=== PATIENT | female | born 1940 | race Caucasian/White ===

== ENCOUNTER → 2017-09-30 14:18 | Outpatient (CLI) | payer MEDICARE, OTHER | END | disposition home or self-care (01) | LOC: D.US 14:18 | DX: M79.605 Pain in left leg (principal); M79.604 Pain in right leg; R60.9 Edema, unspecified ==

== ENCOUNTER → 2020-03-06 18:50 | Outpatient (CLI) | payer MEDICARE, OTHER | END | disposition home or self-care (01) | LOC: D.LABREF 18:50 | PROVIDERS: ATTEND Orthopaedic Surgery | DX: M17.12 Unilateral primary osteoarthritis, left knee (principal) ==

== ENCOUNTER 2020-03-10 12:18 | Inpatient (IN) | payer MEDICARE, MEDICAID ==
[~2020-03-10] VITALS: Ht 152.4 cm; Wt 64.9 kg
[2020-03-18] MEDS ORDERED: PROZAC10 MG PO (15:56)
[2020-03-18] MEDS ORDERED: LOSARTAN-HCTZ1 EAC1 PO (15:56)
[2020-03-18] MEDS ORDERED: NEURONTIN600 MG PO (15:57)
[2020-03-18] MEDS ORDERED: HYDROCODON-ACE1 EA10 PO (15:57)
[2020-03-18] MEDS ORDERED: ELAVIL10 MG PO (15:57)
[2020-03-18] MEDS ORDERED: PROTONIX40 MG PO (15:58)
[2020-03-18] MEDS ORDERED: ROPINIROLE HCL1 MG PO (15:58)
[2020-03-18] MEDS ORDERED: VIRTUSSIN AC PO (15:59)
[2020-03-18] MEDS ORDERED: MUCINEX600 MG PO (16:00)
[2020-03-19 11:51] LABS: APTT 27.9 SECONDS (22.8-39.4); INR 0.98 (0.85-1.17)
[2020-03-19 11:56] LABS: CALC OSMOLALITY 267 mosm/kg (275-300); CALCIUM 9.7 mg/dL (8.5-10.1); CARBON DIOXIDE 28.2 mmol/L (21.0-32.0); CHLORIDE - SERUM 96 mmol/L (98-107); CREATININE - SERUM 0.6 mg/dL (0.6-1.3); GLUCOSE 88 mg/dL (74-106); POTASSIUM - SERUM 4.3 mmol/L (3.5-5.1); SODIUM 134 mmol/L (136-145); UREA NITROGEN 16 mg/dL (7-18); eGFR NON AFRICAN AMERICAN > 90 mL/min (90-120)
[2020-03-19 12:17] LABS: BASOPHILS 0.5 % (0-2); EOSINOPHILS 3.5 % (0-7); HEMATOCRIT 42.3 % (36.0-48.0); HEMOGLOBIN 13.5 g/dL (12-16); IMMATURE GRANULOCYTES 0.1 % (0-5); MCHC 31.9 g/dL (31.0-37.0); MCV 87.8 fL (80.0-100.0); MEAN PLATELET VOLUME 9.9 fL (7.4-10.4); MONOCYTES 9.3 % (2-11); NEUTROPHILS 58.6 % (40-80); PLATELET COUNT 284 10x3/uL (130-400); RBC 4.82 10x6/uL (4.00-5.40); RDW 13.9 % (11.5-14.5); WBC 7.8 10x3/uL (4.8-10.8)
[2020-03-19 13:09] LABS: BILIRUBIN NEGATIVE (NEGATIVE); GLUCOSE NEGATIVE (NEGATIVE); KETONE NEGATIVE (NEGATIVE); NITRITE NEGATIVE (NEGATIVE); SPECIFIC GRAVITY 1.005 (1.005-1.020); UROBILINOGEN NORMAL (NORMAL)
[2020-03-19 13:10] LABS: BACTERIA FEW /hpf (NEGATIVE); EPITHELIAL CELLS OCC /hpf (0-5); RED CELLS - URINE RARE /hpf (0-5); WHITE CELLS - URINE 0-5 /hpf (NEGATIVE)
[2020-03-26] VITALS (8 sets, daily range): BP systolic 110–135; BP diastolic 52–79; BMI 27.9
[2020-03-26] MEDS ORDERED: NEURONTIN600 MG PO (06:22)
[2020-03-26] MEDS ORDERED: ROPINIROLE HCL1 MG PO (06:23)
[2020-03-26] MEDS ORDERED: ELAVIL10 MG PO (06:23)
[2020-03-26] MEDS ORDERED: PROTONIX40 MG PO ×2 (06:24)
--- NOTE | 2020-03-26 08:17 | NUR ---
PLASMA BLADE SET TO 6/8 GROUNDING PAD RIGHT THIGH LOT# [id number] EXP 07/24/2021 PT LEFT LEG CLEANSED WITH HIBECLENS AND ALCOHOL FROM UPPER THIGH TO TOES CIRCUMFERENTIALLY PRIOR TO PREP. NURSE IN STERILE GOWN AND GLOVES TO PREP. LEFT LEG FROM THIGH TO TOES WITH CHLORAPREP X2.
--- NOTE | 2020-03-26 10:27 | NUR ---
ICE APPLIED AND JOHN LAI APPLIED ORDERED. CALLED FOR POST OP XRAY.
--- NOTE | 2020-03-26 11:59 | NUR ---
PATIENT LYING IN BED RESTING WITH EYES CLOSED, RESP EVEN AND UNLABORED, NO S/S OF DISTRESS NOTED, C/L AND FLUIDS IN REACH.
--- NOTE | 2020-03-26 16:00 | NUR ---
ASSISTED PT WITH RW TO B/R, DENIES ANY OTHER NEEDS AT THIS TIME, C/L AND FLUIDS IN REACH.
--- NOTE | 2020-03-26 17:41 | MORECARE ---
CASE MANAGEMENT DISCHARGE SUMMARY PATIENT: HARITHA LYNNE UNIT: [id number] ADM DATE: 03/26/20 AGE: 79 : 41 SEX: F ROOM/BED: D.1213 AUTHOR: SHARRI TILLMAN PHYSICIAN: REFERRING PHYSICIAN: HIPOLITO HUMPHREY DO DATE OF SERVICE: 03/26/20 Discharge Plan Patient Name: HARITHA LYNNE Facility: [facility]:[place] : 1940 Planned Disposition: Anticipated Discharge Date: Discharge Date: Expected LOS: 0 Initial Reviewer: [email or web address] Initial Review Date: 03/26/2020 Generated: 03/26/20 6:40 pm Patient Name: HARITHA LYNNE Page [phone] at 1741 All edits/amendments must be made on the electronic document DICTATION DATE: 03/26/201739 CLAY ARTIST: JUVE 03/26/201739 RPT#: [id number] DC DATE: STATUS: ADM IN [facility] [address] [place] [address] END OF REPORT
--- NOTE | 2020-03-26 18:19 | MORECARE ---
CASE MANAGEMENT DISCHARGE SUMMARY PATIENT: HARITHA LYNNE UNIT: [id number] ADM DATE: 03/26/20 AGE: 79 : 41 SEX: F ROOM/BED: D.1213 AUTHOR: SHARRI TILLMAN PHYSICIAN: REFERRING PHYSICIAN: HIPOLITO HUMPHREY DO DATE OF SERVICE: 03/26/20 Discharge Plan Patient Name: HARITHA LYNNE Facility: [facility]:[place] : 1940 Planned Disposition: Inpatient Rehab Anticipated Discharge Date: Discharge Date: Expected LOS: 0 Initial Reviewer: [email or web address] Initial Review Date: 03/26/2020 Generated: 03/26/20 7:19 pm Comments DCP- Discharge Planning Updated by [email or web address]: Kristan Givens on 03/26/20 5:[address] DC Plan: [facility], pending insurance authorization. CM met with patient to discuss initial discharge planning. Patient is in agreement to proceed with the assessment, with her daughter present. Patient reports that she lives at home independently. Patient is alert/oriented. Stairs/steps: Ramp. PCP: . Pharmacy: [facility]. Patient states she has been able to obtain all of her prescribed medications. HHS: No. DME: Walker X2, Rollator walker, Grab bars in bathroom, elevated toilet seat, bed rail and a stool to step up into her bed. Patient gives permission to speak with family members/care givers. Emergency contact: Jes Sibley (dtr) [phone]. 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 CM discussed the availability of HH, Rehab, SNF, OP Therapy, DME services. Patient request to go into [facility] for therapy. Patient choice signed. Patient denies hospitalization within the past 30 days. 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 Transportation at time of discharge: Patient's family. DCPIA - Discharge Planning Initial Assessment Updated by [email or web address]: Kristan Givens on 03/26/20 6:13 pm * Is the patient Alert and Oriented? Yes * How many steps to enter\exit or inside your home? Ramp * PCP Dr. Mccall * Pharmacy [facility], with delivery * Preadmission Environment Home Alone * Partial ADLs (Assistance needed) Bathing Dressing * Equipment Cane Elevated [place] Seat Grab Bars Walker * Other Equipment Bed rail, stool to step up into bed Rollator. 2 walkers elevated toilet seat * List name and contact numbers for known caregivers / representatives who currently or will assist patient after discharge: Jes Kerr (dtr) [phone] * Verbal permission to speak to the caregivers and representatives has been obtained from the patient. Yes * Community resources currently utilized Private Duty Care * Please name any agencies selected above. [facility] * Additional services required to return to the preadmission environment? Yes * Can the patient safely return to the preadmission environment? No * Has this patient been hospitalized within the prior 30 days at any hospital? No Last DP export: 03/26/20 4:41 p Patient Name: HARITHA LYNNE Page [phone] at 1819 All edits/amendments must be made on the electronic document DICTATION DATE: 03/26/201818 PHOTORESIST CONTACT PRINTER: JUVE 03/26/201818 RPT#: [id number] DC DATE: STATUS: ADM IN [facility] [address] [place] [address] END OF REPORT
--- NOTE | 2020-03-26 20:00 | NUR ---
ALERT RESTING IN BED CPM IN USE, DENIES PAIN OR NEEDS AT THIS TIME, YRN WRAP DRESSING INTACT TO LEFT KNEE, SLIGHT BLOODY DRAINAGE NOTED TO TOP OF YRN WRAP DRESSING, SEE SHIFT ASSESSMENT, CALL LIGHT IN REACH, REMINDED TO USE IS WHEN AWAKE TONIGHT
[2020-03-27] VITALS: BP 102/72
[2020-03-27 04:00] VITALS: BP 123/46
[2020-03-27 06:10] LABS: HEMATOCRIT 31.9 % (36.0-48.0); HEMOGLOBIN 10.2 g/dL (12-16); MCH 27.6 pg (26.0-34.0); MCV 86.2 fL (80.0-100.0); MEAN PLATELET VOLUME 9.5 fL (7.4-10.4); RBC 3.7 10x6/uL (4.00-5.40); RDW 13.9 % (11.5-14.5); WBC 14.3 10x3/uL (4.8-10.8)
--- NOTE | 2020-03-27 07:19 | OP ---
PATIENT NAME: HARITHA LYNNE MEDICAL RECORD: [id number] :42 LOCATION:D. D.1213 ADMISSION DATE:03/26/20 SURGEON: ARCHIE HUMPHREY DO DATE OF OPERATION: 03/26/2020 PROCEDURE PERFORMED: Left total knee arthroplasty. PREOPERATIVE DIAGNOSIS: Left knee osteoarthritis. POSTOPERATIVE DIAGNOSIS: Left knee osteoarthritis. INDICATIONS: Ms. Lynne is a 79-year-old female who has had debilitating left knee osteoarthritis for a long time, years even. She got to a point where she was unable to bear weight, hardly due to the instability and the pain mostly in the left knee. Right knee is also bad. Her left knee hurt her more. She presented to my office having had all of the conservative management and she is ready for something to be done surgically. I informed her of the risks including infection, bleeding, damage to nerves and vessels, need for further surgery, blood clots, even , failure of implant, continued pain, arthrofibrosis, and she signed the consent. SURGEON: Archie Humphrey DO PROCEDURE: The patient was taken to the operative suite after receiving a block by anesthesia in the preoperative area, laid in supine position, given general anesthetic. A gram of vancomycin was started before going to the OR. She was given a gram of TXA. She was sedated and LMA was placed. The left lower extremity was then prepped and draped in sterile fashion. A timeout was performed; everyone was in agreement with the correct side, site, patient and procedure. We then began by marking out the incision and covered in Ioban. The incision was then made with a 10 blade scalpel down to the capsule. Medial parapatellar approach was used at that time to open the knee joint. Once the knee joint was opened, any bleeding was coagulated with the Aquamantys. Once knee joint was opened, a part of the fat pad was removed and the patella was everted and milled down to fit prosthesis. We then did the femur first and flexed the knee and entered the femoral canal and reamed up to a 14 and then put the distal femoral guide on and cut the distal femur. I then did the 4-in-1 cutting block, measured it to be 16 and 4-in-1 cutting block was put on and then cut and put the trial on. We did the posterior stabilized knee and was sized to be 16. The notch was cut out at that time. We then took the trials off the femur and drilled the intramedullary canal of the tibia and reamed up to a 14 and then cut off the medial side, which was quite low, cut 2 mm off of the side, pinned it, proximal tibia cutting block and cut it. This was removed. The menisci removed as well and then we trialled, marked the rotation of the tibial tray and decided to put tibial offset in. This was reamed also with a 2.5 offset and then punched the cruciate. This was removed and irrigated. Cement was mixed, placed in the tibia and on the implant as well as the femur. The tibia was addressed first and impacted into place. Excess cement was removed. The femur was impacted on and excess cement was removed from it as well. Prior to that, the implants were assembled on the back table. The poly was then put in between and brought to extension. The patella had been drilled for the holes for the prosthesis, and once that was completed, this was done prior to cementing. These were irrigated out and curetted out and then the cement was placed in the patella and on the implant and squeezed into place and held into place while the cement dried. We then put the 10% povidone iodine with a 500 mL OPERATIVE REPORT [id number] HARITHA LYNNE of normal saline in the knee and let it sit for 3 minutes and irrigated out with a liter of normal saline. We then irrigated the knee again and trialed the 14 and 16 poly, 16 fit very well. We decided to go with that and then put the posterior stabilized 16 poly in, very constrained. It fit very well and was good stability in flexion and extension. I then irrigated one more time and then put in [place] and vancomycin powder and tobramycin powder in the knee. The capsule was then closed by Raghav Solorio, certified surgical appeals assistant with #1 Vicryl pop offs in [id number] fashion and then the skin also closed by Raghav Solorio, certified surgical appeals assistant with 2-0 Vicryl in inverted interrupted fashion. ZipLine was placed on the knee. Adaptic, 4 x 4s, ABD, Webril, Phuc wrap, and JOHN stockings and placed on the left leg. She was then awakened and taken to recovery in stable condition. Blood loss approximately 300 mL. COMPLICATIONS: None. TRANSINT:[id number] Voice Confirmation ID: [id number] DOCUMENT ID: [id number] ARCHIE HUMPHREY DO at 0719 CC: [id number] DICTATION DATE: 03/26/20934 INSIDE TRUCKER: 03/26/202117 ADM IN [facility] [address] [place] [address]
--- NOTE | 2020-03-27 07:40 | NUR ---
PT RESTING IN BED WITH EYES CLOSED. RESP EVEN AND UNLABORED. AWAKENS SPONTANEOUSLY. PT REPORTS PAIN 4/10 AT THIS TIME. CPM IN PLACE TO LEFT LOWER EXTREMITY. SALINE LOC INTACT TO LEFT FOREARM, SITE WITHOUT REDNESS OR EDEMA. DRESSING TO LEFT LOWER EXTREMITY INTACT WITH SMALL AMOUNT OF OLD DRAINAGE. CPM IN PLACE AND ANETA WELL. INSTRUCTED PT DRESSING TO BE CHANGED WHEN CPM COMES OFF. PT VOICES UNDERSTANDING. DENIES FURTHER NEEDS AT THIS TIME. CL WITHIN REACH. ENCOURAGED TO CALL WITH NEEDS. CONTINUE POC
[2020-03-27 08:05] VITALS: BP 125/70
--- NOTE | 2020-03-27 08:50 | NUR ---
CPM REMOVED. AM MEDICATIONS ADMINISTERED PER MD ORDERS. ICE PACK PLACED TO LEFT KNEE. DENIES FURTHER NEEDS AT THIS TIME. CL WITHIN REACH. ENCOURAGED TO CALL WITH NEEDS.
--- NOTE | 2020-03-27 09:06 | CN ---
PATIENT NAME:HARITHA LYNNE MEDICAL RECORD: [id number] : 42 LOCATION:D.Felix D.1213 ADMIT DATE: 03/26/20 ACCOUNT: [id number] CONSULTING PHYSICIAN: ELOISA DE PAZ MD REFERRING PHYSICIAN: HIPOLITO HUMPHREY DO DATE OF CONSULTATION: 03/26/2020 Hospitalist Consultation CONSULTATION REQUESTED BY: Dr. Humphrey for medical management. HISTORY OF PRESENT ILLNESS: This is a 79-year-old white female who was admitted by Dr. Humphrey for elective left total knee arthroplasty. This was done this morning. I have been her primary care physician for many years and I am consulted for medical management. PAST MEDICAL HISTORY: Depression, osteoarthritis, hypertension, hyperlipidemia, and restless leg syndrome. PAST SURGICAL HISTORY: She has had a total shoulder arthroplasty and then a reverse left total shoulder arthroplasty. She has had ORIF of the left wrist fracture and now the left total knee arthroplasty. HOME MEDICATIONS: Include losartan 100-HCTZ 25 once a day, Prozac 10 mg once a day, gabapentin 600 mg twice a day, Elavil 30 mg at bedtime, ropinirole 2 mg at bedtime, hydrocodone 10/325 p.r.n. pain, and Protonix 40 mg once a day. HABITS: No tobacco, alcohol or drugs. ALLERGIES: SULFA AND CEPHALEXIN. SOCIAL HISTORY: She is retired. She is . FAMILY HISTORY: Mother with lung cancer. REVIEW OF SYSTEMS: GENERAL: No major weight changes. HEENT: No particular sinus or allergy problems. RESPIRATORY: No history of emphysema or asthma. CARDIAC: No history of coronary artery disease. GASTROINTESTINAL: She has reflux. GENITOURINARY: No significant problems there. MUSCULOSKELETAL: She has arthritic aches and pains diffusely. NEUROLOGIC: No migraines or seizures. PSYCHIATRIC: She has depression. PHYSICAL EXAMINATION: VITAL SIGNS: Temperature 97.5, pulse 94, respirations 18, blood pressure 135/77, O2 sat 95%. GENERAL: She is awake and alert. She is postoperative and is complaining of some mild to moderate pain. HEENT: Grossly within normal limits. NECK: Supple. HEART: Regular rate and rhythm. LUNGS: Clear. CONSULT REPORT [id number] HARITHA LYNNE ABDOMEN: Soft, nontender. EXTREMITIES: Left knee is in a dressing. There is no lower extremity edema. LABORATORY DATA: Done on 03/19/2020, showed a normal CBC, a normal protime, normal basic metabolic panel and urinalysis. Preop chest x-ray shows no obvious abnormality. ASSESSMENT: 1. Hypertension. 2. Osteoarthritis, now status post left total knee arthroplasty by Dr. Humphrey. PLAN: We will continue her usual home medications. We will monitor her blood pressure. The usual postop care. Thank you for this consult. We will follow while she is in the hospital. TRANSINT:[id number] Voice Confirmation ID: [id number] DOCUMENT ID: [id number] ELOISA DE PAZ MD at 0906 CC: [id number] DICTATION DATE: 03/26/202341 CAREER TECHNICAL SUPERVISOR: 03/27/20 0408 ADM IN [facility] [id number] [place] [address]
--- NOTE | 2020-03-27 09:28 | NUR ---
PT UP WITH PT. SITTING IN CHAIR AT BEDSIDE. PT ANETA WELL. CL WITHIN REACH. DENIES FURTHER NEEDS AT THIS TIME. CL WITHIN REACH. ENCOURAGED TO CALL WITH NEEDS.
--- NOTE | 2020-03-27 10:30 | NUR ---
PT REMAINS UP IN CHAIR AT BEDSIDE. NO ACUTE DISTRESS NOTED. PT REQUEST FOR BOWL OF MIXED FRUIT AT THIS TIME. CONTACTED DIETARY REGARDING WISHES AND THAT PT WOULD LIKE FRUIT AT THIS TIME FOR AM SNACK.
--- NOTE | 2020-03-27 11:25 | NUR ---
PT REMAINS UP IN CHAIR AT BEDSIDE. NO ACUTE DISTRESS NOTED. NO NEEDS VOICED AT THIS TIME. CL WITHIN REACH. ENCOURAGED TO CALL WITH NEEDS.
--- NOTE | 2020-03-27 12:30 | NUR ---
PT SITTING UP IN BED EATING LUNCH. FAMILY AT BEDSIDE. RESP EVEN AND UNLABORED. PT REPORTS PAIN 5/10 AT THIS TIME. DENIES FURTHER NEEDS AT THIS TIME. REQUEST PAIN MEDS AT 1300. CL WITHIN REACH. ENCOURAGED TO CALL WITH NEEDS.
[2020-03-27 12:41] VITALS: BP 143/53
--- NOTE | 2020-03-27 13:15 | NUR ---
DRESSING CHANGED TO LEFT LOWER EXTREMITY. ZIP TIES TO INCISION IN PLACE. EDGES WELL APPROXIMATED. SCANT AMOUNT OF FRESH SEROSANGEOUNOUS DRAINAGE NOTED TO DRESSING. MEPILEX AG APPLIED TO KNEE AND WRAPPED WITH YRN BANDAGE. PT ANETA WELL
[2020-03-27 13:42] VITALS: Ht 152.4 cm; Wt 64.9 kg
--- NOTE | 2020-03-27 14:26 | NUR ---
PT RESTING IN BED WITH EYES CLOSED. RESP EVEN AND UNLABORED. CL WITHIN REACH.
--- NOTE | 2020-03-27 15:17 | NUR ---
PT CONTINUES TO REST WITH EYES CLOSED. RESP EVEN AND UNLABORED. CL WITHIN REACH.
--- NOTE | 2020-03-27 16:05 | NUR ---
ASSISTED PT TO BATHROOM AND BACK TO BED X 1 ASSIST WITH MINIMAL ASSISTANCE. PT VOIDED AND RETURNED TO BED WITH USE OF WALKER. PT REPORTS PAIN 5/10 AT THIS TIME. DENIES FURTHER NEEDS AT THIS TIME. CL WITHIN REACH. ENCOURAGED TO CALL WITH NEEDS.
[2020-03-27 16:19] VITALS: BP 141/59
--- NOTE | 2020-03-27 16:29 | NUR ---
OT NOTE: PT REQUIRED MOD A FOR POSITIONING OF LE . PT COMPLETED FACE HYGIENE WITH SETUP. [phone] THANK YOU,SHENG GREENE
[2020-03-27 20:00] VITALS: BP 142/61
--- NOTE | 2020-03-27 20:10 | NUR ---
CPM OFF AT THIS TIME ASSISSTED UP TO BATHROOM AMBULATING WITH WALKER, REQUESTED TO SIT UP IN RECLINER FOR A WHILE, DAUGHTER PRESENT, SEE SHIFT ASSESSMENT, CALL LIGHT IN REACH, C/O PAIN TO LEFT KNEE AND MUSCLES, WILL GIVE PAIN MEDICATION SOON CAN
--- NOTE | 2020-03-27 22:15 | NUR ---
CONTINUES TO C/O SEVER PAIN IT LEFT KNEE AFTER GETTING BACK TO BED, UNABLE TO FLUSH PRESENT IV, IV RESITED TO LEFT FOREARM 22G X 1 ATTEMPT DILAUDID 0.5MG GIVEN ORDERED
[2020-03-28 04:00] VITALS: BP 128/53
--- NOTE | 2020-03-28 05:00 | NUR ---
AROUSED EASILY, STATES SLEP WELL AFTER PAIN MEDICATION, ASSISTED UP TO BATHROOM AND BACK TO BED USING WALKER, REQUESTED NORCO FOR PAIN GIVEN, CPM PLACED AT THSI TIME
[2020-03-28 06:07] LABS: HEMATOCRIT 31.6 % (36.0-48.0); HEMOGLOBIN 10.2 g/dL (12-16); MCH 27.3 pg (26.0-34.0); MCHC 32.3 g/dL (31.0-37.0); MCV 84.5 fL (80.0-100.0); MEAN PLATELET VOLUME 9.7 fL (7.4-10.4); RBC 3.74 10x6/uL (4.00-5.40); RDW 14.1 % (11.5-14.5); WBC 13.5 10x3/uL (4.8-10.8)
[2020-03-28 07:16] VITALS: BP 146/75
--- NOTE | 2020-03-28 07:46 | NUR ---
AWAKE AND ALERT. ORIENTED X3. C/O PAIN TO LEFT KNEE WITH CPM. WILL MONITOR. LUNGS ARE CLEAR BILATERALLY, NO COUGH NOTED. SKIN IS INTACT WITHOUT REDNESS EXCEPT INCISION TO LEFT KNEE WHICH HAS A DRY INTACT DRESSING IN PLACE. SL TO LEFT HAND IS PATENT WITHOUT REDNESS AT INSERTION SITE. SCD'S, JOHN'S AND CPM IN PLACE. ENCOURAGED TO USE IS INSTRUCTED.
--- NOTE | 2020-03-28 09:17 | NUR ---
REQUESTED AND GIVEN ONE HYDROCODONE PO FOR C/O LEFT KNEE PAIN LEVEL 7. WILL MONITOR.
--- NOTE | 2020-03-28 11:04 | NUR ---
REFUSED BATH. LINENS CHANGED PER STAFF. REPORTS PAIN IMPROVED WITH USE OF HYDROCODONE. WILL MONITOR.
--- NOTE | 2020-03-28 12:05 | NUR ---
VOIDED 300 CC CLEAR YELLOW URINE. SPECIMEN SENT TO LAB PER ORDERS. REPOSITIONED IN CHAIR AT BEDSIDE FOR COMFORT.
[2020-03-28 12:06] VITALS: BP 147/61
--- NOTE | 2020-03-28 12:08 | MORECARE ---
CASE MANAGEMENT DISCHARGE SUMMARY PATIENT: IRA LYNNE UNIT: [id number] ADM DATE: 03/26/20 AGE: 79 : 41 SEX: F ROOM/BED: D.1213 AUTHOR: SHARRI TILLMAN PHYSICIAN: REFERRING PHYSICIAN: HIPOLITO HUMPHREY DO DATE OF SERVICE: 03/28/20 Discharge Plan Patient Name: IRA LYNNE Facility: [facility]:[place] : 1940 Planned Disposition: Inpatient Rehab Anticipated Discharge Date: 03/31/20 Discharge Date: Expected LOS: 5 Initial Reviewer: [email or web address] Initial Review Date: 03/26/2020 Generated: 03/28/20 1:07 pm DCP- Discharge Planning Updated by [email or web address]: Kristan Givens on 03/26/20 5:[address] DC Plan: [facility] rehab, pending insurance authorization. CM met with patient to discuss initial discharge planning. Patient is in agreement to proceed with the assessment, with her daughter present. Patient reports that she lives at home independently. Patient is alert/oriented. Stairs/steps: Ramp. PCP: . Pharmacy: [facility]. Patient states she has been able to obtain all of her prescribed medications. HHS: No. DME: Walker X2, Rollator walker, Grab bars in bathroom, elevated toilet seat, bed rail and a stool to step up into her bed. Patient gives permission to speak with family members/care givers. Emergency contact: Jes Sibley (dtr) [phone]. 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 CM discussed the availability of HH, Rehab, SNF, OP Therapy, DME services. Patient request to go into [facility] Rehab for therapy. Patient choice signed. Patient denies hospitalization within the past 30 days. 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 Transportation at time of discharge: Patient's family. DCPIA - Discharge Planning Initial Assessment Updated by [email or web address]: Kristan Givens on 03/26/20 6:13 pm * Is the patient Alert and Oriented? Yes * How many steps to enter\exit or inside your home? Ramp * PCP Dr. Mccall * Pharmacy [facility], with delivery * Preadmission Environment Home Alone * Partial ADLs (Assistance needed) Bathing Dressing * Equipment Cane Elevated [place] Seat Grab Bars Walker * Other Equipment Bed rail, stool to step up into bed Rollator. 2 walkers elevated toilet seat * List name and contact numbers for known caregivers / representatives who currently or will assist patient after discharge: Jes Hymandianelysbert (dtr) [phone] * Verbal permission to speak to the caregivers and representatives has been obtained from the patient. Yes * Community resources currently utilized Private Duty Care * Please name any agencies selected above. [facility] * Additional services required to return to the preadmission environment? Yes * Can the patient safely return to the preadmission environment? No * Has this patient been hospitalized within the prior 30 days at any hospital? No Coverage Notice Reviewer: [id number] Fidel Givens Notice Issued Date-Time: 03/26/2020 18:19 Notice Type: Patient Choice Letter Notice Delivered To: Patient Relationship to Patient: Self Dryer Operator Name: Ira Lynne Delivery Method: HAND - Hand Delivered Cheryl Days: Prior Verbal Notification: Recipient Understood Notice: Yes Recipient Signature: Yes Med Rec Note Co-signed by Attending: Coverage Notice Comment: Patient choice for [facility] Rehab signed. Original to chart. Last DP export: 03/26/20 5:19 p Patient Name: IRA LYNNE Page 64225 at 1208 All edits/amendments must be made on the electronic document DICTATION DATE: 03/28/207 QUALITY ASSURANCE CALIBRATOR: JUVE 03/28/20 1207 RPT#: [id number] DC DATE: STATUS: ADM IN [facility] [address] [place] [address] END OF REPORT
[2020-03-28 12:40] LABS: BILIRUBIN NEGATIVE (NEGATIVE); GLUCOSE 100 mg/dL (NEGATIVE); KETONE NEGATIVE (NEGATIVE); NITRITE NEGATIVE (NEGATIVE); UROBILINOGEN NORMAL (NORMAL)
--- NOTE | 2020-03-28 13:20 | MORECARE ---
CASE MANAGEMENT DISCHARGE SUMMARY PATIENT: IRA LYNNE UNIT: [id number] ADM DATE: 03/26/20 AGE: 79 : 41 SEX: F ROOM/BED: D.1213 AUTHOR: SHARRI TILLMAN PHYSICIAN: REFERRING PHYSICIAN: HIPOLITO HUMPHREY DO DATE OF SERVICE: 03/28/20 Discharge Plan Patient Name: IRA LYNNE Facility: [facility]:[place] : 1940 Planned Disposition: Inpatient Rehab Anticipated Discharge Date: 03/31/20 Discharge Date: Expected LOS: 5 Initial Reviewer: [email or web address] Initial Review Date: 03/26/2020 Generated: 03/28/20 2:19 pm DCP- Discharge Planning Updated by [email or web address]: Kristan Givens on 03/26/20 5:[address] DC Plan: [facility] rehab, pending insurance authorization. CM met with patient to discuss initial discharge planning. Patient is in agreement to proceed with the assessment, with her daughter present. Patient reports that she lives at home independently. Patient is alert/oriented. Stairs/steps: Ramp. PCP: . Pharmacy: [facility]. Patient states she has been able to obtain all of her prescribed medications. HHS: No. DME: Walker X2, Rollator walker, Grab bars in bathroom, elevated toilet seat, bed rail and a stool to step up into her bed. Patient gives permission to speak with family members/care givers. Emergency contact: Jes Sibley (dtr) [phone]. 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 CM discussed the availability of HH, Rehab, SNF, OP Therapy, DME services. Patient request to go into [facility] for therapy. Patient choice signed. Patient denies hospitalization within the past 30 days. Patient denies the use of community resources DAM ATTENDANT. Transportation at time of discharge: Patient's family. DCPIA - Discharge Planning Initial Assessment Updated by [id number]: Kristan Givens on 03/26/20 6:13 pm * Is the patient Alert and Oriented? Yes * How many steps to enter\exit or inside your home? Ramp * PCP Dr. Mccall * Pharmacy [facility], with delivery * Preadmission Environment Home Alone * Partial ADLs (Assistance needed) Bathing Dressing * Equipment Cane Elevated [place] Seat Grab Bars Walker * Other Equipment Bed rail, stool to step up into bed Rollator. 2 walkers elevated toilet seat * List name and contact numbers for known caregivers / representatives who currently or will assist patient after discharge: Jes Kerr (dtr) [phone] * Verbal permission to speak to the caregivers and representatives has been obtained from the patient. Yes * Community resources currently utilized Private Duty Care * Please name any agencies selected above. [facility] * Additional services required to return to the preadmission environment? Yes * Can the patient safely return to the preadmission environment? No * Has this patient been hospitalized within the prior 30 days at any hospital? No Coverage Notice Reviewer: [id number] Fidel Givens Notice Issued Date-Time: 03/26/2020 18:19 Notice Type: Patient Choice Letter Notice Delivered To: Patient Relationship to Patient: Self Reactor Service Operator Name: Ira Lynne Delivery Method: HAND - Hand Delivered Cheryl Days: Prior Verbal Notification: Recipient Understood Notice: Yes Recipient Signature: Yes Med Rec Note Co-signed by Attending: Coverage Notice Comment: Patient choice for [facility] Re[facility] signed. Original to chart. Reviewer: [id number] Fidel Givens Notice Issued Date-Time: 03/28/2020 13:04 Notice Type: IM Discharge Notice Notice Delivered To: Patient Relationship to Patient: Self Reactor Service Operator Name: Jacki Lynne Delivery Method: HAND - Hand Delivered Cheryl Days: Prior Verbal Notification: Recipient Understood Notice: Yes Recipient Signature: Yes Med Rec Note Co-signed by Attending: Coverage Notice Comment: DC IMM signed. Last DP export: 03/28/20 11:08 a Patient Name: IRA LYNNE Page [phone] at 1320 All edits/amendments must be made on the electronic document DICTATION DATE: 03/28/20 1320 NAPHTHALENE OPERATOR: JUVE 03/28/20 1320 RPT#: [id number] DC DATE: STATUS: ADM IN [facility] [address] [place] [address] END OF REPORT
--- NOTE | 2020-03-28 13:27 | NUR ---
AMBULATED IN HALLWAY WITH PT. REQUESTED AND GIVNE ONE HYDROCODONE PO FOR C/O LEFT KNEE PAIN LEVEL 7. WILL MONITOR.
--- NOTE | 2020-03-28 15:17 | NUR ---
UP TO BR WITH ONE PERSON MIN ASSIST. VOIDED WITHOUT DIFFICULTY. PHILIP CARE PER SELF. REPOSITIONED IN BED FOR COMFORT.
--- NOTE | 2020-03-28 16:32 | NUR ---
ON NOTE: PT COMPLETED SIDE ROLLING AND BRIDGING TASKS WITH SBA. PT COMPLETED BUE AROM EXS TOLERATED. PT COMPLETED FACE HYGIENE WITH SETUP. [phone] THANK YOU,SHENG GREENE
[2020-03-28 16:40] VITALS: BP 123/67
--- NOTE | 2020-03-28 16:46 | NUR ---
Rehab Note- Received call from Annette Anderson with [facility] for 3 day auth approval for inpatient acute rehab stay. Auth #[id number]. Will admit patient when medically stable and ready for discharge from the acute hospital. Thank you for this referral! Jonna Hartmann RN Clinical Liaison, [facility] Rehab
--- NOTE | 2020-03-28 16:56 | NUR ---
REPOSITIONED IN BED FOR COMFORT. SUPPER SERVED IN ROOM.
--- NOTE | 2020-03-28 17:28 | NUR ---
ATE ALMOST ALL OF SUPPER. REQUESTED AND GIVEN ONE HYDROCODONE PO FOR C/O LEFT KNEE PAIN LEVEL 7. WILL MONITOR. CPM IN PLACE AT THIS TIME. DENIES NEEDS. NO CHANGES NOTED.
[2020-03-28 20:00] VITALS: BP 117/53
--- NOTE | 2020-03-28 20:00 | NUR ---
LYING QUIETLY WITH NO DISTRESS NOTED. YRN WRAP DRESSING INTACT TO LEFT KNEE WITHOUT DRAINAGE NOTED. CPM IN USE AT THIS TIME. NO COMPLAITNS VOICED.
[2020-03-29] VITALS: BP 106/66
--- NOTE | 2020-03-29 01:24 | NUR ---
I have reviewed this patient and I concur with the Shift Assessment completed by the Licensed Practical Nurse today this shift.
[2020-03-29 04:00] VITALS: BP 120/60
--- NOTE | 2020-03-29 08:15 | NUR ---
PATIENT TAKEN OFF CPM WITH ASSSIT. ACEWRAP INTACT TO LEFT KNEE WITH JOHN HOSE AND PEDAL PULSES NOTED. NORCO GIVEN FOR PAIN 05/09. PLEXI NOTED TO LLE AND SCD TO RLE. IV TO LEFT F/A W/O ANY S/S OF INFECTION/INFILTRATION. LUNGS CTA AND HRRR. ABDOMEN SOFT WITH BOWEL SOUNDS NOTED.
[2020-03-29 08:40] VITALS: BP 135/49
--- NOTE | 2020-03-29 09:56 | NUR ---
AMBULATED IN HALLWAY 68 FEET WITH THERAPY WITH R/WALKER.
[2020-03-29 12:00] VITALS: BP 98/50
--- NOTE | 2020-03-29 13:53 | MORECARE ---
CASE MANAGEMENT DISCHARGE SUMMARY PATIENT: IRA LYNNE UNIT: [id number] ADM DATE: 03/26/20 AGE: 79 : 41 SEX: F ROOM/BED: D.2234 AUTHOR: SHARRI TILLMAN PHYSICIAN: REFERRING PHYSICIAN: HIPOLITO HUMPHREY DO DATE OF SERVICE: 03/29/20 Discharge Plan Patient Name: IRA LYNNE Facility: [facility]:[place] : 1940 Planned Disposition: Inpatient Rehab Anticipated Discharge Date: 03/31/20 Discharge Date: Expected LOS: 5 Initial Reviewer: [email or web address] Initial Review Date: 03/26/2020 Generated: 03/29/20 2:53 pm Comments DCP- Discharge Planning Updated by [email or web address]: Unique William on 03/29/20 12:[address] Patient has been accepted to inpatient rehab today at [facility] DCP- Discharge Planning Updated by [email or web address]: Kristan Givens on 03/26/20 5:[address] DC Plan: [facility] rehab, pending insurance authorization. CM met with patient to discuss initial discharge planning. Patient is in agreement to proceed with the assessment, with her daughter present. Patient reports that she lives at home independently. Patient is alert/oriented. Stairs/steps: Ramp. PCP: . Pharmacy: [facility]. Patient states she has been able to obtain all of her prescribed medications. HHS: No. DME: Walker X2, Rollator walker, Grab bars in bathroom, elevated toilet seat, bed rail and a stool to step up into her bed. Patient gives permission to speak with family members/care givers. Emergency contact: Jes Sibley (dtr) [phone]. 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 CM discussed the availability of HH, Rehab, SNF, OP Therapy, DME services. Patient request to go into [facility] for therapy. Patient choice signed. Patient denies hospitalization within the past 30 days. 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 Transportation at time of discharge: Patient's family. DCPIA - Discharge Planning Initial Assessment Updated by [id number]: Kristan Givens on 03/26/20 6:13 pm * Is the patient Alert and Oriented? Yes * How many steps to enter\exit or inside your home? Ramp * PCP Dr. Mccall * Pharmacy [facility], with delivery * Preadmission Environment Home Alone * Partial ADLs (Assistance needed) Bathing Dressing * Equipment Cane Elevated [place] Seat Grab Bars Walker * Other Equipment Bed rail, stool to step up into bed Rollator. 2 walkers elevated toilet seat * List name and contact numbers for known caregivers / representatives who currently or will assist patient after discharge: Jes Cirilo (dtr) [phone] * Verbal permission to speak to the caregivers and representatives has been obtained from the patient. Yes * Community resources currently utilized Private Duty Care * Please name any agencies selected above. [facility] * Additional services required to return to the preadmission environment? Yes * Can the patient safely return to the preadmission environment? No * Has this patient been hospitalized within the prior 30 days at any hospital? No Coverage Notice Reviewer: [id number] Fidel Givens Notice Issued Date-Time: 03/26/2020 18:19 Notice Type: Patient Choice Letter Notice Delivered To: Patient Relationship to Patient: Self Pipe Fitter Marine Name: Ira Lynne Delivery Method: HAND - Hand Delivered Cheryl Days: Prior Verbal Notification: Recipient Understood Notice: Yes Recipient Signature: Yes Med Rec Note Co-signed by Attending: Coverage Notice Comment: Patient choice for [facility] Re[facility] signed. Original to chart. Reviewer: [id number] Fiedl Givens Notice Issued Date-Time: 03/28/2020 13:04 Notice Type: IM Discharge Notice Notice Delivered To: Patient Relationship to Patient: Self Pipe Fitter Marine Name: Jacki Lynne Delivery Method: HAND - Hand Delivered Cheryl Days: Prior Verbal Notification: Recipient Understood Notice: Yes Recipient Signature: Yes Med Rec Note Co-signed by Attending: Coverage Notice Comment: DC IMM signed. Last DP export: 03/28/20 12:20 p Patient Name: IRA LYNNE Page [phone] at 1353 All edits/amendments must be made on the electronic document DICTATION DATE: 03/29/20 1353 HEALTH SAFETY MANAGER: JUVE 03/29/20 1353 RPT#: [id number] DC DATE: STATUS: ADM IN [facility] [address] [address] END OF REPORT
[2020-03-29] MEDS ORDERED: ELIQUIS2.5 MG PO (15:40)
[2020-03-29 16:00] VITALS: BP 105/51
--- NOTE | 2020-03-29 16:28 | NUR ---
LOVE COMPLAINS OF INCREASED LEFT ELBOW PAIN WITH DR. HUMPHREY NOTIFIED WITH NEW ORDER FOR X-RAY
--- NOTE | 2020-03-29 17:08 | NUR ---
IV DISCONTINUED WITH REPORT CALLED TO BRYAN. STABLE AT TIME OF DISCHARGE AND VERBALIZED SOME RELEIF OF KNEE AND ELBOW PAIN.
--- NOTE | 2020-03-29 17:26 | NUR ---
DR. HUMPHREY NOTIFIED OF XRAY RESULTS WITH NEW ORDER TO CANCEL DISCHARGE AT THIS TIME.
[2020-03-29 20:00] VITALS: BP 90/47
[2020-03-30] VITALS: BP 112/60
[2020-03-30 04:00] VITALS: BP 122/64
--- NOTE | 2020-03-30 04:00 | NUR ---
I have reviewed this patient and I concur with the Shift Assessment completed by the Licensed Practical Nurse today this shift.
[2020-03-30 06:37] LABS: BASOPHILS 0.2 % (0-2); EOSINOPHILS 3.9 % (0-7); HEMATOCRIT 28.7 % (36.0-48.0); HEMOGLOBIN 9.4 g/dL (12-16); IMMATURE GRANULOCYTES 0.3 % (0-5); MCH 27.6 pg (26.0-34.0); MCHC 32.8 g/dL (31.0-37.0); MCV 84.2 fL (80.0-100.0); MEAN PLATELET VOLUME 9.5 fL (7.4-10.4); MONOCYTES 12.3 % (2-11); NEUTROPHILS 61.3 % (40-80); PLATELET COUNT 291 10x3/uL (130-400); RBC 3.41 10x6/uL (4.00-5.40); WBC 9.9 10x3/uL (4.8-10.8)
[2020-03-30 06:51] LABS: CALC OSMOLALITY 256 mosm/kg (275-300); CALCIUM 8.5 mg/dL (8.5-10.1); CARBON DIOXIDE 29.4 mmol/L (21.0-32.0); CHLORIDE - SERUM 93 mmol/L (98-107); CREATININE - SERUM 0.6 mg/dL (0.6-1.3); GLUCOSE 113 mg/dL (74-106); SODIUM 127 mmol/L (136-145); UREA NITROGEN 16 mg/dL (7-18); eGFR NON AFRICAN AMERICAN > 90 mL/min (90-120)
--- NOTE | 2020-03-30 07:48 | NUR ---
PATIENT PREPED FOR SURGERY WITH BLOOD PRESSURE MEDICATIONS GIVEN. STABLE AT TIME OF DEPARTURE. DRESSING INTACT TO LEFT KNEE WITH PEDAL PULSES NOTED. SLING INTACT TO LEFT ELBOW. IV INTACT TO LEFT F/A W/O ANY S/S OF INFECTION/INFILTRATION.
[2020-03-30 08:00] VITALS: BP 122/62
--- NOTE | 2020-03-30 10:09 | NUR ---
1006 - PT STATES HER PAIN IS A "4" AND THAT SHE IS COMFORTABLE THERE
[2020-03-30 10:35] VITALS: BP 105/49
--- NOTE | 2020-03-30 10:44 | NUR ---
PATIENT AWAKE AND REPOSNSIVE TO VERAL COMMANDS. DENIES ANY ELBOW PAIN AT THIS TIME. DRESSING INTACT WITH; SLING TO LEFT WITH RADIAL PULSES NOTED. ENCORAGED TO USE CALL LIGHT FOR ASSSIT.
[2020-03-30 21:01] VITALS: BP 94/49
[2020-03-31 00:21] VITALS: BP 100/48
[2020-03-31 06:19] LABS: BASOPHILS 0.1 % (0-2); EOSINOPHILS 1.5 % (0-7); HEMATOCRIT 24.5 % (36.0-48.0); HEMOGLOBIN 7.9 g/dL (12-16); IMMATURE GRANULOCYTES 0.3 % (0-5); LYMPHOCYTES 14.4 % (15-50); MCH 27.5 pg (26.0-34.0); MCHC 32.2 g/dL (31.0-37.0); MCV 85.4 fL (80.0-100.0); MEAN PLATELET VOLUME 9.3 fL (7.4-10.4); MONOCYTES 11.4 % (2-11); NEUTROPHILS 72.3 % (40-80); PLATELET COUNT 278 10x3/uL (130-400); RBC 2.87 10x6/uL (4.00-5.40); WBC 10.7 10x3/uL (4.8-10.8)
[2020-03-31 06:31] LABS: CALC OSMOLALITY 261 mosm/kg (275-300); CALCIUM 8.3 mg/dL (8.5-10.1); CARBON DIOXIDE 29.2 mmol/L (21.0-32.0); CHLORIDE - SERUM 97 mmol/L (98-107); CREATININE - SERUM 0.7 mg/dL (0.6-1.3); GLUCOSE 116 mg/dL (74-106); POTASSIUM - SERUM 4.2 mmol/L (3.5-5.1); SODIUM 129 mmol/L (136-145); UREA NITROGEN 19 mg/dL (7-18); eGFR NON AFRICAN AMERICAN 86 mL/min (90-120)
--- NOTE | 2020-03-31 06:45 | NUR ---
I have reviewed this patient and I concur with the Shift Assessment completed by the Licensed Practical Nurse today this shift.
[2020-03-31 06:47] VITALS: BP 140/53
--- NOTE | 2020-03-31 08:10 | NUR ---
DR. HUMPHREY AND THIS NURSE IN ROOM. HE STATES TO PT XR FOR KNEE LOOKS GOOD AND SX IS NOT NEEDED AT THIS TIME. HE STATES THERE WAS SOME CEMMENT LEAKAGE BUT HE IS JUST GOING TO WATCH IT. HE STATES PT CAN USE CPM MACHINE AND WEAR SCD AND PLEXI. I VERBALIZED UNDERSTANDING. SCD ON RIGHT LEG AND PLEXI ON LEFT FOOT. WILL DO CPM AFTER DINNER. PT ASKING FOR NORCO 10 AND HE STATES IF HER BP IS BACK UP SHE CAN HAVE IT. I STATED HER BP IS 136/55. HE STATES PT CAN HAVE NORCO 10 BUT HE IS STILL GOING TO KEEP HER BP MEDS HELD AT THIS TIME. THIS NURSE AND PT VERBALIZED UNDERSTANDING.
[2020-03-31 08:16] VITALS: BP 136/55
--- NOTE | 2020-03-31 08:48 | OP ---
PATIENT NAME: HARITHA LYNNE MEDICAL RECORD: [id number] LOCATION:D.MS [id number] ADMISSION DATE:03/26/20 SURGEON: HIPOLITO HUMPHREY DO DATE OF OPERATION: 03/30/2020 PROCEDURE PERFORMED: Left radial head arthroplasty. 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 POSTOPERATIVE DIAGNOSIS: Left radial head and neck nonunion. INDICATIONS: Ms. Lynne is a 79-year-old female who underwent left total knee arthroplasty on Tuesday. She tolerated that well, although she is started complaining of elbow pain prior to being discharged to rehab and this started getting worse she said. She does not recall ever falling or getting x-rays and seeing that the elbow is broken, but she did say that had been hurting her for quite some time, but increasing pain now. 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 I stopped her from going to rehabilitation, and I had a long discussion with her about what she wanted to do. I told her it is obviously old, but it was causing acute pain and we gave her the option of doing a radial head arthroplasty. She is okay with that option and wanted to do something surgically about it and she signed the consent. DESCRIPTION OF PROCEDURE: She is aware of the risks and benefits including damage to the radial nerve, continued pain, further loss of motion of the elbow and stability and risk of refracture distal to the stem. She is aware of all that and signed a consent. SURGEON: Hipolito Humphrey DO DESCRIPTION OF PROCEDURE: The patient was taken to the operative suite and laid in the supine position, given general anesthetic. A gram of vancomycin was given preoperatively. She was sedated and an LMA was placed. The left upper extremity was prepped and draped in sterile fashion. Timeout was performed, everyone was in agreement with the correct side, site, patient and procedure. The left upper extremity was then exsanguinated with an Esmarch, tourniquet was inflated to 250 mmHg, was up for 38 minutes. I then began by making an incision over the lateral epicondyle and going distally through the Pina approach. Careful dissection was made down to the radial head. The nonunion was taken down and half of the radial head that was still there was taken out. It was sized to be a 22. We used an Acumed radial head arthroplasty set. I then resected the radius back to a stable point as she had had a severe nonunion and most of it was fibrous almost to the point of the radial tubercle. We then used the largest neck we could and reduce it and was in good position on AP and lateral and with pronation and supination of the wound we trilled. We did broach to a 7; the 7 fit well. The 8, I felt would be too tight and would cause fracture due to her brittle bone. The actual implant was put in and then impacted into place, fit very snugly and the elbow was reduced. We then took x-rays, AP, there is appropriate height, length and had good range of motion without instability. I then closed the interval. We went through to the elbow with a #1 Vicryl in a simple fashion and then Raghav Solorio, certified surgical certified surgical tech/first assistant closed the incision with 2-0 Vicryl and 4-0 Monocryl in the skin and Steri-Strips. She was wrapped in a soft dressing and awakened and taken to OPERATIVE REPORT [id number] HARITHA LYNNE recovery in stable condition. The tourniquet was let down at 38 minutes. Blood loss was minimal. COMPLICATIONS: None. TRANSINT:[id number] Voice Confirmation ID: [id number] DOCUMENT ID: [id number] HIPOLITO HUMPHREY DO at 0848 CC: [id number] DICTATION DATE: 03/30/20 0956 SPRINKLER TRUCK DRIVER: 03/31/20 0017 ADM IN [facility] [address] [id number]
--- NOTE | 2020-03-31 10:27 | NUR ---
I have reviewed this patient and I concur with the Shift Assessment completed by the Licensed Practical Nurse today this shift.
--- NOTE | 2020-03-31 10:40 | NUR ---
P.T. GOT PT UP TO RECLINER CHAIR. JOHN HOSE REMOVED FROM LEFT LEG.
[2020-03-31 12:11] VITALS: BP 126/53
--- NOTE | 2020-03-31 14:06 | NUR ---
Nutrition follow-up: Diet: Regular PO intake ~75% average at meals Pt s/p left knee replacement; also with sore elbow labs reviewed WT: 143# PO intake is good at this time RDN following.
--- NOTE | 2020-03-31 15:35 | NUR ---
OT NOTE: (AM) PT COMPLETED SIT STAND WITH CGA. PT COMPLETED RUE AROM EXS WHILE IN CHAIR. (PM) PT COMPLETED LUE POSITIONING WITH MIN A. PT COMPLETED UB HYGIENE WITH RUE WITH SETUP. [phone] HITESH MESA COTA
--- NOTE | 2020-03-31 16:37 | NUR ---
Rehab Note- Initiated PreAuth with [facility], Ref#[id number], will await determiniation for possible inpatient acute rehab stay at this time. THank you for this referral! Jonna Hartmann RN Clinical Liaison, [facility] Rehab
[2020-03-31 16:54] VITALS: BP 110/48
--- NOTE | 2020-03-31 18:20 | NUR ---
PT PLACED ON CPM MACHINE.
[2020-03-31 21:58] VITALS: BP 111/41
[2020-04-01 00:51] VITALS: BP 111/43
--- NOTE | 2020-04-01 03:03 | NUR ---
REC'D CHGE OF SHIFT IN CPM LEFT LEG.REQUESTING TO COME OFF EXPLAINED ONLY PLACED ON IT AT 1830.DRSG DRY AND INTACT WILL CONTINUE TO MONITOR FOR ANY CHGES NEUROVASCULAR STATUS AND FOLLOW CURRENT PLAN OF CARE.
[2020-04-01 05:48] LABS: CALC OSMOLALITY 263 mosm/kg (275-300); CALCIUM 8.7 mg/dL (8.5-10.1); CARBON DIOXIDE 27.9 mmol/L (21.0-32.0); CHLORIDE - SERUM 95 mmol/L (98-107); CREATININE - SERUM 0.6 mg/dL (0.6-1.3); GLUCOSE 108 mg/dL (74-106); POTASSIUM - SERUM 4.2 mmol/L (3.5-5.1); SODIUM 130 mmol/L (136-145); UREA NITROGEN 19 mg/dL (7-18); eGFR NON AFRICAN AMERICAN > 90 mL/min (90-120)
--- NOTE | 2020-04-01 07:27 | NUR ---
I have reviewed this patient and I concur with the Shift Assessment completed by the Licensed Practical Nurse today this shift.
[2020-04-01 08:45] VITALS: BP 143/51
--- NOTE | 2020-04-01 09:27 | NUR ---
C/O ABD PAIN RATING 7/10 ON PAIN SCALE WAS MEDICATED WITH NORCO PER ORDERS. C/L IN REACH AT BEDSIDE.
[2020-04-01 11:18] LABS: BASOPHILS 0.2 % (0-2); EOSINOPHILS 3.6 % (0-7); HEMATOCRIT 25.6 % (36.0-48.0); HEMOGLOBIN 8.2 g/dL (12-16); IMMATURE GRANULOCYTES 0.2 % (0-5); LYMPHOCYTES 13.9 % (15-50); MCH 27.2 pg (26.0-34.0); MCV 84.8 fL (80.0-100.0); MEAN PLATELET VOLUME 9.1 fL (7.4-10.4); MONOCYTES 10.1 % (2-11); PLATELET COUNT 326 10x3/uL (130-400); RBC 3.02 10x6/uL (4.00-5.40); WBC 10.7 10x3/uL (4.8-10.8)
[2020-04-01 12:53] VITALS: BP 113/64
--- NOTE | 2020-04-01 13:40 | NUR ---
I have reviewed this patient and I concur with the Shift Assessment completed by the Licensed Practical Nurse today this shift.
--- NOTE | 2020-04-01 14:05 | NUR ---
C/O ABD PAIN RATING 7/10 ON PAIN SCALE WAS MEDICATED WITH NORCO PER ORDERS.
--- NOTE | 2020-04-01 14:41 | NUR ---
OT NOTE: (AM) PT COMPLETED UB HYGIENE TASKS WITH SETUP. PT COMPLETED RUE AROM EXS. PT HAD C/O PAIN SECONDARY TO CONSTIPATION. NOTIFIED NURSING. (PM) PT COMPOETED BED MOB WITH MIN A. PT COMPLETED BED TO CHAIR TSF WITH CGA. PT FAMILY PRESENT. FAMILY EDUCATED TO CALL FOR ASSISTANCE BEFORE LEAVING AND/OR TO TSF PT. [phone];120-144 THANK YOU,SHENG GREENE
[2020-04-01 16:55] VITALS: BP 112/50
[2020-04-01 20:58] VITALS: BP 103/51
--- NOTE | 2020-04-01 21:54 | NUR ---
ALERT ORENTED ABLE TO VOICE NEEDS AND WANTSTO STAFF. CPM ON . IV TO RIGHT FOREARM. SCD TO RIGHT PLEX PULSE TO LEFT LEG. WANTS TO BE CHECKED FOR UTI. CALL LIGHT AND FLUIDS IN REACH.
[2020-04-02 00:32] VITALS: BP 112/42
[2020-04-02 05:29] VITALS: BP 132/57
--- NOTE | 2020-04-02 08:20 | NUR ---
RESTING IN BED, CPM IN PLACE, CONT TO MONITOR PAIN, WILL OBTAIN UA TODAY
[2020-04-02 08:30] VITALS: BP 120/51
--- NOTE | 2020-04-02 10:10 | NUR ---
Rehab Note- Received call from Paige with [facility] requesting to refax clinicals to another fax # [phone]. Faxed per request. Continue to await determination for an approval for a inpatient rehab stay. Thank you for this referral! Jonna Hartmann RN Clinical Liaison, [facility] Rehab
[2020-04-02 11:29] LABS: BILIRUBIN NEGATIVE (NEGATIVE); GLUCOSE NEGATIVE (NEGATIVE); KETONE NEGATIVE (NEGATIVE); NITRITE NEGATIVE (NEGATIVE); SPECIFIC GRAVITY 1.005 (1.005-1.020); UROBILINOGEN NORMAL (NORMAL)
[2020-04-02 11:32] LABS: BACTERIA MODERATE /hpf (NEGATIVE); EPITHELIAL CELLS OCC /hpf (0-5); RED CELLS - URINE RARE /hpf (0-5); WHITE CELLS - URINE 0-5 /hpf (NEGATIVE)
[2020-04-02 12:16] VITALS: BP 121/51
--- NOTE | 2020-04-02 14:21 | NUR ---
Rehab Note- Have spoken to Paige CLinical Reviewer for [facility] several times today- states that since the patient had a pending admission from a previous authorization that was started previously to 03/31 that the patient can admit under the auth # of [id number] with a 3 day approval & clinical update review on 04/04 or Sat 04/05 with Cheryl phone # [phone] & fax #[phone]. Notified IMMANUEL Rodriguez on Med-Surg of approval. Thank you for this referral! Jonna Hartmann RN Clinical Liaison, [facility] Rehab
--- NOTE | 2020-04-02 14:47 | NUR ---
OT NOTE: (AM) PT SITTING UP IN CHAIR. PT REQUIRED SETUP FOR FACE AND HAND HYGIENE. PT COMPLETED RUE AROM EXS. (PM) PT COMPLETED SIT TO STAND WITH CGA. PT COMPLETED DYNAMIC STANDING WITH CGA. [id number];[phone] HITESH MESA COTA
[2020-04-02 14:54] VITALS: BP 120/56
[2020-04-02] MEDS ORDERED: OXYCODONE HCL5 M1 PO (15:54)
--- NOTE | 2020-04-02 16:39 | MORECARE ---
CASE MANAGEMENT DISCHARGE SUMMARY PATIENT: IRA LYNNE UNIT: [id number] ADM DATE: 03/26/20 AGE: 79 : 41 SEX: F ROOM/BED: D.2234 AUTHOR: SHARRI TILLMAN PHYSICIAN: REFERRING PHYSICIAN: HIPOLITO HUMPHREY DO DATE OF SERVICE: 04/02/20 Discharge Plan Patient Name: IRA LYNNE Facility: [facility]:[place] : 1940 Planned Disposition: Inpatient Rehab Anticipated Discharge Date: 03/31/20 Discharge Date: Expected LOS: 5 Initial Reviewer: [id number] Initial Review Date: 03/26/2020 Generated: 04/02/20 5:39 pm Comments DCP- Discharge Planning Updated by [email or web address]: Charline Caldwell on 04/02/20 3:[address] Patient Name: IRA LYNNE Admission Status: Elective Accout number: [id number] Admission Date: 03-26-2020 : 1940 Admission Diagnosis:UNILATERAL PRIMARY OSTEOARTHRITIS, LEFT KNEE Attending: HIPOLITO HUMPHREY Current LOS: 7 Anticipated DC Date: 03-31-2020 Planned Disposition: Inpatient Rehab Primary Insurance: [facility] MEDICARE SOLUTIONS Discharge Planning Comments: PATIENT TO DC TO [facility] TODAY. IMM SIGNED. Home Health Speech Therapist: Charline Caldwell DCP- Discharge Planning Updated by [email or web address]: Unique William on 03/29/20 12:[address] Patient has been accepted to inpatient rehab today at [facility] DCP- Discharge Planning Updated by [email or web address]: Kristan Givens on 03/26/20 5:[address] DC Plan: [facility], pending insurance authorization. CM met with patient to discuss initial discharge planning. Patient is in agreement to proceed with the assessment, with her daughter present. Patient reports that she lives at home independently. Patient is alert/oriented. Stairs/steps: Ramp. PCP: . Pharmacy: [facility]. Patient states she has been able to obtain all of her prescribed medications. HHS: No. DME: Walker X2, Rollator walker, Grab bars in bathroom, elevated toilet seat, bed rail and a stool to step up into her bed. Patient gives permission to speak with family members/care givers. Emergency contact: Jes Sibley (dtr) [phone]. 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 CM discussed the availability of HH, Rehab, SNF, OP Therapy, DME services. Patient request to go into [facility] for therapy. Patient choice signed. Patient denies hospitalization within the past 30 days. 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 Transportation at time of discharge: Patient's family. DCPIA - Discharge Planning Initial Assessment Updated by [email or web address]: Kristan Givens on 03/26/20 6:13 pm * Is the patient Alert and Oriented? Yes * How many steps to enter\exit or inside your home? Ramp * PCP Dr. Mccall * Pharmacy [facility], with delivery * Preadmission Environment Home Alone * Partial ADLs (Assistance needed) Bathing Dressing * Equipment Cane Elevated [place] Seat Grab Bars Walker * Other Equipment Bed rail, stool to step up into bed Rollator. 2 walkers elevated toilet seat * List name and contact numbers for known caregivers / representatives who currently or will assist patient after discharge: Jes Kerr ([facility]) [phone] * Verbal permission to speak to the caregivers and representatives has been obtained from the patient. Yes * Community resources currently utilized Private Duty Care * Please name any agencies selected above. [facility] * Additional services required to return to the preadmission environment? Yes * Can the patient safely return to the preadmission environment? No * Has this patient been hospitalized within the prior 30 days at any hospital? No Coverage Notice Reviewer: [id number] Fidel Givens Notice Issued Date-Time: 03/26/2020 18:19 Notice Type: Patient Choice Letter Notice Delivered To: Patient Relationship to Patient: Self Donor Center Technician Name: Ira Lynne Delivery Method: HAND - Hand Delivered Cheryl Days: Prior Verbal Notification: Recipient Understood Notice: Yes Recipient Signature: Yes Med Rec Note Co-signed by Attending: Coverage Notice Comment: Patient choice for [facility] signed. Original to chart. Reviewer: [id number] Fidel Givens Notice Issued Date-Time: 03/28/2020 13:04 Notice Type: IM Discharge Notice Notice Delivered To: Patient Relationship to Patient: Self Donor Center Technician Name: Jacki Lynne Delivery Method: HAND - Hand Delivered Cheryl Days: Prior Verbal Notification: Recipient Understood Notice: Yes Recipient Signature: Yes Med Rec Note Co-signed by Attending: Coverage Notice Comment: DC IMM signed. Reviewer: [id number] Fidel Caldwell Notice Issued Date-Time: 04/02/2020 16:28 Notice Type: IM Discharge Notice Notice Delivered To: Patient Relationship to Patient: Donor Center Technician Name: Delivery Method: HAND - Hand Delivered Cheryl Days: Prior Verbal Notification: Recipient Understood Notice: Yes Recipient Signature: Yes Med Rec Note Co-signed by Attending: Coverage Notice Comment: Last DP export: 03/29/20 12:53 p Patient Name: IRA LYNNE Page [id number] at 1639 All edits/amendments must be made on the electronic document DICTATION DATE: 04/02/201638 ESTHETICIAN MAKEUP ARTIST: JUVE 04/02/20 163 RPT#: [id number] DC DATE: STATUS: ADM IN [facility] [address] [place] [address] END OF REPORT
--- NOTE | 2020-04-02 17:15 | NUR ---
DC IV, TIP INTACT, CALLED REPORT TO [facility] IN REHAB, TAKEN TO REHAB PER W/C
--- NOTE | 2020-04-03 07:35 | MORECARE ---
CASE MANAGEMENT DISCHARGE SUMMARY PATIENT: IRA LYNNE UNIT: [id number] ADM DATE: 03/26/20 AGE: 79 : 41 SEX: F ROOM/BED: D.2234 AUTHOR: SHARRI TILLMAN PHYSICIAN: REFERRING PHYSICIAN: HIPOLITO HUMPHREY DO DATE OF SERVICE: 04/03/20 Discharge Plan Patient Name: IRA LYNNE Facility: [facility]:[place] : 1940 Planned Disposition: Inpatient Rehab Anticipated Discharge Date: 03/31/20 Discharge Date: 04/02/2020 Expected LOS: 5 Initial Reviewer: [email or web address] Initial Review Date: 03/26/2020 Generated: 04/03/20 8:35 am Comments DCP- Discharge Planning Updated by [email or web address]: Charline Caldwell on 04/02/20 3:[address] Patient Name: IRA LYNNE Admission Status: Elective Accout number: [id number] Admission Date: 03-26-2020 : 1940 Admission Diagnosis:UNILATERAL PRIMARY OSTEOARTHRITIS, LEFT KNEE Attending: HIPOLITO HUMPHREY Current LOS: 7 Anticipated DC Date: 03-31-2020 Planned Disposition: Inpatient Rehab Primary Insurance: [facility] MEDICARE SOLUTIONS Discharge Planning Comments: PATIENT TO DC TO [facility] TODAY. IMM SIGNED. Supervisory Forester: Charline Caldwell DCP- Discharge Planning Updated by [email or web address]: Unique William on 03/29/20 12:[address] Patient has been accepted to inpatient rehab today at [facility] DCP- Discharge Planning Updated by [id number]: Kristan Givens on 03/26/20 5:[address] DC Plan: [facility], pending insurance authorization. CM met with patient to discuss initial discharge planning. Patient is in agreement to proceed with the assessment, with her daughter present. Patient reports that she lives at home independently. Patient is alert/oriented. Stairs/steps: Ramp. PCP: . Pharmacy: [facility]. Patient states she has been able to obtain all of her prescribed medications. HHS: No. DME: Walker X2, Rollator walker, Grab bars in bathroom, elevated toilet seat, bed rail and a stool to step up into her bed. Patient gives permission to speak with family members/care givers. Emergency contact: Jes Sibley (dtr) [phone]. 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 CM discussed the availability of HH, Rehab, SNF, OP Therapy, DME services. Patient request to go into [facility] for therapy. Patient choice signed. Patient denies hospitalization within the past 30 days. 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 Transportation at time of discharge: Patient's family. DCPIA - Discharge Planning Initial Assessment Updated by [email or web address]: Kristan Givens on 03/26/20 6:13 pm * Is the patient Alert and Oriented? Yes * How many steps to enter\exit or inside your home? Ramp * PCP Dr. Mccall * Pharmacy [facility], with delivery * Preadmission Environment Home Alone * Partial ADLs (Assistance needed) Bathing Dressing * Equipment Cane Elevated [place] Seat Grab Bars Walker * Other Equipment Bed rail, stool to step up into bed Rollator. 2 walkers elevated toilet seat * List name and contact numbers for known caregivers / representatives who currently or will assist patient after discharge: Jes Kerr (dtr) [phone] * Verbal permission to speak to the caregivers and representatives has been obtained from the patient. Yes * Community resources currently utilized Private Duty Care * Please name any agencies selected above. [facility] * Additional services required to return to the preadmission environment? Yes * Can the patient safely return to the preadmission environment? No * Has this patient been hospitalized within the prior 30 days at any hospital? No Coverage Notice Reviewer: [email or web address] Fidel Givens Notice Issued Date-Time: 03/26/2020 18:19 Notice Type: Patient Choice Letter Notice Delivered To: Patient Relationship to Patient: Self Quality Improvement Engineer Name: Ira Lynne Delivery Method: HAND - Hand Delivered Cheryl Days: Prior Verbal Notification: Recipient Understood Notice: Yes Recipient Signature: Yes Med Rec Note Co-signed by Attending: Coverage Notice Comment: Patient choice for [facility] signed. Original to chart. Reviewer: [id number] Fidel Givens Notice Issued Date-Time: 03/28/2020 13:04 Notice Type: IM Discharge Notice Notice Delivered To: Patient Relationship to Patient: Self Quality Improvement Engineer Name: Jacki Lynne Delivery Method: HAND - Hand Delivered Cheryl Days: Prior Verbal Notification: Recipient Understood Notice: Yes Recipient Signature: Yes Med Rec Note Co-signed by Attending: Coverage Notice Comment: DC IMM signed. Reviewer: [id number] - Charline Caldwell Notice Issued Date-Time: 04/02/2020 16:28 Notice Type: IM Discharge Notice Notice Delivered To: Patient Relationship to Patient: Quality Improvement Engineer Name: Delivery Method: HAND - Hand Delivered Cheryl Days: Prior Verbal Notification: Recipient Understood Notice: Yes Recipient Signature: Yes Med Rec Note Co-signed by Attending: Coverage Notice Comment: Last DP export: 04/02/20 3:39 pm Patient Name: IRA LYNNE Page [phone] at 0735 All edits/amendments must be made on the electronic document DICTATION DATE: 04/03/20734 SAP TECHNICAL DEVELOPER: JUVE 04/03/2035 RPT#: [id number] DC DATE:04/02/20 STATUS: DIS IN [place] [facility] [id number] [place] [address] END OF REPORT
== END 2020-04-02 17:15 | DRG 470 ==
LOC: D.SDCHOLD 03-25 10:00 → D.M3 03-26 05:20 → D.SDCHOLD 03-26 05:20 → D.MS 03-26 05:20 → D.SDCHOLD 03-26 07:00 → D.M3 03-26 10:17 → D.MS 03-28 18:26
PROVIDERS: Family Medicine; ADMIT Orthopaedic Surgery; ATTEND Orthopaedic Surgery
PROC: 0SRD0J9 Replacement of Left Knee Joint with Synthetic Substitute, Cemented, Open Approach (ICD-10-PCS; principal; 2020-03-26 07:00)
PROC: 0PRJ0JZ Replacement of Left Radius with Synthetic Substitute, Open Approach (ICD-10-PCS; 2020-03-30)
DX: M17.12 Unilateral primary osteoarthritis, left knee (principal); I10 Essential (primary) hypertension; S52.122A Displaced fracture of head of left radius, initial encounter for closed fracture; X58.XXXA Exposure to other specified factors, initial encounter

== ENCOUNTER 2020-04-02 15:13 | Inpatient (IN) | payer MEDICARE, MEDICAID ==
[~2020-04-02] VITALS: Ht 152.4 cm; Wt 64.9 kg
[~2020-04-02 15:13] MED LIST: ELAVIL10 MG PO; ELIQUIS2.5 MG PO; HYDROCODON-ACE1 EA10 PO; LOSARTAN-HCTZ1 EAC1 PO; MUCINEX600 MG PO; NEURONTIN600 MG PO; PROTONIX40 MG PO; PROZAC10 MG PO; ROPINIROLE HCL1 MG PO; VIRTUSSIN AC PO
[2020-04-02] MEDS ORDERED: OXYCODONE HCL5 M1 PO (15:54)
--- NOTE | 2020-04-02 18:00 | NUR ---
PT RECEIVED FROM [facility] TO ROOM 1119B ORIENTED TO ROOM AND CL.
--- NOTE | 2020-04-02 19:30 | NUR ---
ADMIT THIS PT TO [facility] AND SERVICES OF DR JACOME. AWAKE AND ALERT. RTESPIRATIONS UNLABORED. YRN WRAP INTACT TO LEFT ARM. LEFT KNEE DRESSING INTACT. C/O PAIN IN TIB FIB AREA OF LEFT LEG WITH A HARD KNOT NOTED. TIB FIB XRAY ORDERED.
--- NOTE | 2020-04-02 22:00 | NUR ---
TIB FIB XRAY NEGATIVE FOR FRACTURE.
[2020-04-02 22:48] VITALS: BP 168/48; BMI 27.9
[2020-04-02 23:05] VITALS: BP 168/48
--- NOTE | 2020-04-03 02:05 | NUR ---
SLEEPING WITH RESPIRATIONS UNLABORED. NO DISTRESS NOTED.
--- NOTE | 2020-04-03 05:11 | NUR ---
QUIET HOURS. NO ACUTE CHANGES IN CONDITION THIS SHIFT. RESTING IN BED WITH NO DISTRESS NOTED.
[2020-04-03 08:00] VITALS: BP 142/55
[2020-04-03 09:21] LABS: CALC OSMOLALITY 263 mosm/kg (275-300); CALCIUM 8.4 mg/dL (8.5-10.1); CARBON DIOXIDE 24.2 mmol/L (21.0-32.0); CHLORIDE - SERUM 96 mmol/L (98-107); CREATININE - SERUM 0.6 mg/dL (0.6-1.3); GLUCOSE 145 mg/dL (74-106); POTASSIUM - SERUM 4.2 mmol/L (3.5-5.1); SODIUM 129 mmol/L (136-145); UREA NITROGEN 17 mg/dL (7-18); eGFR NON AFRICAN AMERICAN > 90 mL/min (90-120)
[2020-04-03 09:36] LABS: BASOPHILS 0.2 % (0-2); HEMATOCRIT 27.4 % (36.0-48.0); HEMOGLOBIN 8.5 g/dL (12-16); IMMATURE GRANULOCYTES 0.4 % (0-5); LYMPHOCYTES 20.2 % (15-50); MCH 26.8 pg (26.0-34.0); MCV 86.4 fL (80.0-100.0); MEAN PLATELET VOLUME 9.6 fL (7.4-10.4); MONOCYTES 6.7 % (2-11); NEUTROPHILS 67.5 % (40-80); PLATELET COUNT 333 10x3/uL (130-400); RBC 3.17 10x6/uL (4.00-5.40); RDW 14.3 % (11.5-14.5); WBC 10.2 10x3/uL (4.8-10.8)
--- NOTE | 2020-04-03 11:40 | NUR ---
C/O PAIN AND TENDERNESS LEFT LEG.NOTIFIED FOR CONSULT.
--- NOTE | 2020-04-03 12:10 | NUR ---
JARRETT FROM 'S OFFICE CALLED BACK WITH ORDERS TO DO VENOUS DOPPLER LEFT LEG.
--- NOTE | 2020-04-03 12:20 | NUR ---
PATIENT ADMITTED TO REHAB FROM ACUTE FLOOR. DR. DE PAZ IS PATIENTS PCP. DME AT HOME IS A WALKER AND A ROLLATOR. DISCHARGE PLANS ARE FOR PATIENT TO REURN HOME. WILL CONTINUE TO FOLLOW WITH PATIENT.
[2020-04-03 13:22] VITALS: Ht 152.4 cm; Wt 64.9 kg
--- NOTE | 2020-04-03 19:21 | NUR ---
AWAKE AND ALERT. RESTING IN BED WITH RESPIRATIONS UNLABORED. VISITING WITH FAMILY MEMBER. VENOUS DOPPLER RESULTS NEGATIVE FOR DVT AND RESULTS DISCUSSED WITH PATIENT. SHE STATES DR HUMPHREY SAW HER AND EVALUATED TO KNOT ON HER LEG JUST A SHORT TIME AGO AROUND 5PM.
[2020-04-03 21:53] VITALS: BP 124/38
--- NOTE | 2020-04-04 00:32 | NUR ---
SLEEPING WITH RESPIRATIONS UNLABORED. NO DISTRESS NOTED. CALL LIGHT IN REACH.
--- NOTE | 2020-04-04 05:14 | NUR ---
ASSISTED TO BATHROOM AND BACK TO BED. MEDICATED FOR PAIN, SEE MAR. NOW RESTING IN BED WITH NO ACUTE CHANGES THIS SHIFT. RESPIRATIONS UNLABORED.
[2020-04-04 08:00] VITALS: BP 126/57
[2020-04-04 08:27] LABS: BASOPHILS 0.3 % (0-2); HEMATOCRIT 28.4 % (36.0-48.0); HEMOGLOBIN 8.8 g/dL (12-16); IMMATURE GRANULOCYTES 0.8 % (0-5); LYMPHOCYTES 21.8 % (15-50); MCH 26.8 pg (26.0-34.0); MCV 86.6 fL (80.0-100.0); MEAN PLATELET VOLUME 9.7 fL (7.4-10.4); MONOCYTES 10.3 % (2-11); NEUTROPHILS 61.8 % (40-80); PLATELET COUNT 365 10x3/uL (130-400); RBC 3.28 10x6/uL (4.00-5.40); RDW 14.2 % (11.5-14.5); WBC 8.6 10x3/uL (4.8-10.8)
[2020-04-04 08:45] LABS: CALC OSMOLALITY 263 mosm/kg (275-300); CALCIUM 9.1 mg/dL (8.5-10.1); CHLORIDE - SERUM 96 mmol/L (98-107); CREATININE - SERUM 0.5 mg/dL (0.6-1.3); GLUCOSE 104 mg/dL (74-106); POTASSIUM - SERUM 4.3 mmol/L (3.5-5.1); SODIUM 131 mmol/L (136-145); UREA NITROGEN 16 mg/dL (7-18); eGFR NON AFRICAN AMERICAN > 90 mL/min (90-120)
[2020-04-04 08:51] LABS: CARBON DIOXIDE 30.8 mmol/L (21.0-32.0)
--- NOTE | 2020-04-04 08:54 | RHP ---
PATIENT: HARITHA LYNNE MEDICAL RECORD: [id number] ACCOUNT: [id number] [facility] : [birth year] ADMISSION DATE: 04/02/20 REHABILITATION HISTORY AND PHYSICAL EXAMINATION POST ADMISSION PHYSICIAN EXAMINATION ADMITTING DIAGNOSIS: Left total knee. HISTORY OF PRESENT ILLNESS: The patient is a 79-year-old female patient who had debilitating left total knee osteoarthritis for quite some time. She was at that point she was unable to bear weight, hardly able to get around. She had instability. Her right knee was also noted to be bad, but her left knee was worse. She presented to the orthopedic surgeon's office for conservative management. She decided she is ready to have something done at surgery and underwent a total knee on 03/26/2020. 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 She has been receiving physical and occupational therapy during her stay. She has been progressing slowly with mobility and having increased acute pain and having difficulty with sensation return to her left lower extremity. She needs to be monitored closely for pain control, swelling, lab values, monitoring her O2. She has got a history of urinary incontinence, electrolyte abnormalities. She is on anticoagulation. She has got weakness, balance deficits, decreased activity tolerance, impaired mobility, decreased quality of life, decreased strength, gait disturbance, limited safety awareness. She has a risk for falls. She needs cues for equipment, low endurance, unsteady gait and balance, fatigues easily and inability to care for self. These are barriers to her discharge home at this time. She lives at home with her daughter and was independent with ADLs and mobility using a rolling walker prior to this. She is currently set up for max assist for ADLs and mod to max assist for mobility. Plans to return home with her daughter as close to her prior level of functioning or better. COMORBIDITIES: Include weakness, left radial head and neck nonunion, acute pain, osteoarthritis, leukocytosis, acute blood loss anemia, depression, hyperlipidemia, and restless legs. PAST MEDICAL HISTORY: Significant for depression, osteoarthritis, hypertension, hyperlipidemia, restless legs. PAST SURGICAL HISTORY: Includes she has had shoulder arthroplasty in the past and then a reverse total shoulder. She has also had an ORIF of her wrist and now a knee surgery. ALLERGIES: SULFA AND KEFLEX. CURRENT MEDICATIONS: Include hydrochlorothiazide 25 mg daily, losartan 100 mg daily, Mucinex 400 mg daily, Prozac 10 mg daily, Protonix 40 mg daily, Requip 2 mg at bedtime, Neurontin 600 mg b.i.d., Eliquis 2.5 mg b.i.d., Elavil 30 mg at bedtime, OxyIR 5 mg every 6 hours p.r.n. and [place] 10/325 just for mild pain. HABITS: No alcohol or tobacco use. FAMILY HISTORY: Noncontributory. HISTORY AND PHYSICAL [id number] HARITHA LYNNEANNE SOCIAL HISTORY: The patient hopes to return back home and get back to her prior level of functioning. REVIEW OF SYSTEMS: GENERAL: Does complain of a little bit of weakness, especially in her leg. HEENT: Denies cold, cough, or congestion. CARDIOVASCULAR: Denies any chest pain. PHYSICAL EXAMINATION: VITAL SIGNS: Stable, afebrile. GENERAL: A well-developed elderly female, in no acute distress upon exam. HEENT: Normocephalic and atraumatic. Mucosa moist. NECK: Supple without adenopathy. LUNGS: Clear at this time. No wheezing, rhonchi or rales. HEART: Regular rate and rhythm. No murmurs, rubs or gallops. ABDOMEN: Soft, benign and nondistended. Positive bowel sounds times 4. EXTREMITIES: Does have postop swelling that appears within normal range for upper extremity, actually her knee. NEUROLOGIC: She does have some weakness. ASSESSMENT: This is a 79-year-old female patient admitted to rehab with a working diagnosis of left total knee complicated by nonunion radial head fracture. The patient has potential to make improvement. We instituted the following multidisciplinary therapies include, but not limited to physical, occupational, respiratory, speech, nutritional services, prosthetics and orthotics. Given her complex medical condition and risk for more complications, rehabilitation services cannot be provided at a low level of care such a [facility] facility. PLAN: [facility]. [facility] to include the following disciplines; A. Physical therapy to improve gait, all transfer skills and bed mobility to a modified independent level. B. Occupational therapy to improve activities of daily living. C. Case management to assist with discharge planning and placement options. D. Nutrition to assist with nutritional needs. E. Rehabilitation nursing to assist in monitoring the patient's underlying medical conditions and to assist with any type of bowel or bladder management. 2. The patient's current medication and medical care will be continued. 3. The patient will be placed on standard fall precautions. 4. The patient's estimated length of stay is approximately 7-10 days. 5. We will discuss this patient during care team staff meeting this week. Continue on Eliquis for deep vein thrombosis prophylaxis. We will work on mobilization with upper extremity pain and status post surgery also and I will see again in the a.m. TRANSINT:[id number] Voice Confirmation ID: [id number] DOCUMENT ID: [id number] KALEN notes whether there has been none or any medical/functional change since admission: - No change since prescreen. HISTORY AND PHYSICAL [id number] HARITHA LYNNE attests patient continues to be appropriate for IRF: - Continues to be appropriate. MARIA ANTONIA JACOME MD at 0854 CC: [id number] DICTATION DATE: 04/03/20 0846 PILE FABRIC KNITTER: 04/03/20 1120 ADM IN [place] [id number] [place] [id number]
--- NOTE | 2020-04-04 10:36 | NUR ---
LAYING DOWN IN BED. STATES HER LEFT KNEE AND BONILLA AREA IS PAINFUL. APPX 3" BELOW LEFT KNEECAP IS LEMON SIZED RAISED AREA. SHE REPORTS IT IS VERY PAINFUL TO TOUCH. KNEE INCISION HAS BORDER DSG COVING IT.
--- NOTE | 2020-04-04 13:51 | NUR ---
CLINICAL UPDATES FAXED TO [facility]/JENNIFER TO , AUTH. # [id number] WITH CONFORMATION RECIEVED. WILL CONTNUE TO FOLLOW WITH PATIENT.
--- NOTE | 2020-04-04 19:21 | NUR ---
AWAKE AND ALERT. WAS IN BATHROOM. HAD LARGE BM. ASSISTED BACK TO BED. STATES SHE IS STILL IN PAIN BUT "JUST HAD A PAIN PILL AT 5:45 PM." I TOLD HER I WOULD MEDICATE HER AGAIN SOON IT IS TIME IF SHE IS STILL IN PAIN. SHE STATED OKAY.
[2020-04-04 19:37] VITALS: BP 148/93
--- NOTE | 2020-04-05 00:48 | NUR ---
SLEEPING WITH RESPIRATIONS UNLABORED. NO DISTRESS NOTED.
--- NOTE | 2020-04-05 05:21 | NUR ---
RESTING IN BED. RESPIRATIONS UNLABORED. NO ACUTE CHANGES IN CONDITION THIS SHIFT.
[2020-04-05 08:00] VITALS: BP 129/45
--- NOTE | 2020-04-05 10:07 | NUR ---
RESTING QUIETLY IN BED. PAIN MEDS GIVEN EARLIER. STILL HAS DRESSING OVER LEFT KNEE. RAISED AREA APPX 3" BELOW LEFT KNEE CAP ON BONILLA AREA SEEMS TO BE GETTING SMALLER. SHE STILL C/O PAIN TO THAT AREA. CALL LIGHT IN REACH, BED IN LOWEST POSITION, SIDE RAILS UP X2
--- NOTE | 2020-04-05 18:42 | NUR ---
CURRENTLY HAS VISITOR SITTING WITH HER. DSG TAKEN OFF LEFT KNEE. HAS ZIP TIE CLOSURES THAT LOOK INTACT WITH NO S/S INFECTION. SMALL SWOLLEN LEMON SIZED AREA JUST UNDER LEFT KNEE, ANTERIOR LOOKS LIKE IT IS SLOWELY GOING DOWN BUT IT IS STILL PRESENT AND VERY TENDER TO TOUCH. SHE SHOWERED HERSELF TODAY AND HAS ASKED FOR PAIN MEDS OFTEN. CALL LIGHT IN REACH. BED IN LOWEST POSITION AND SIDE RAILS UP X2.
--- NOTE | 2020-04-05 19:05 | NUR ---
BEDSIDE REPORT COMPLETE. PT LYING IN BED SUPINE WATCHING TV. ALERT AND ORIENTED X4. DENIES ANY NEEDS OR PAIN. LEFT ELBOW DRESSING INTACT. LEFT KNEE ZIPTIES INTACT KNOT NOTED AT BOTTOM OF INCISION DR. HUMPHREY IS AWARE. CALL LIGHT WITHIN REACH. BED ALARM ON. CPOC
[2020-04-05 21:10] VITALS: BP 132/48
--- NOTE | 2020-04-06 00:28 | NUR ---
PT LYING IN BED EYES CLOSED RESTING. RR EVEN AND UNLABORED. CALL LIGHT WITHIN REACH. FALL PRECAUTIONS IN PLACE. CPOC
--- NOTE | 2020-04-06 02:00 | NUR ---
ASSISTED PT TO RESTROOM AND BACK TO BED WITH MIN ASSIST. DENIES ANY OTHER NEEDS OR PAIN. CALL LIGHT WITHIN REACH. FALL PRECAUTIONS IN PLACE. CPOC
--- NOTE | 2020-04-06 05:26 | NUR ---
ASSISTED PT TO RESTROOM AND BACK TO BED WITH MIN ASSIST. PT REQUEST PAIN MEDICATION 6/10 LEFT KNEE PAIN DEEP ACHING. WILL ADMINISTER [place] 10/325MG. DENIES ANY OTHER NEEDS. CALL LIGHT WITHIN REACH. BED ALARM ON. CPOC
[2020-04-06 08:00] VITALS: BP 126/50
--- NOTE | 2020-04-06 13:14 | NUR ---
MOD ASST TO TRANSFER TO AFTER BEING ON CPM MACHING 2 HRS. PAIN MEDS GIVEN ORDERED AND REQUESTED. ZIP TIES TO LEFT KNEE INTACT. NO S/S INFECTION. ALL LIGHT IN REACH. BED IN LOWEST POSITION. SIDE RAILS UP X2.
--- NOTE | 2020-04-06 15:47 | NUR ---
CURRENTLY SITTING UP IN RECLINER IN ROOM. IS TIRED OF THE BED AND WC. CHANGES HER DEPENDS AND PAD OFTEN DUE TO LEAKING BLADDER.
--- NOTE | 2020-04-06 19:00 | NUR ---
BEDSIDE REPORT COMPLETE. PT SITTING UP IN BED READING BOOK. ALERT AND ORIENTED X4. DENIES ANY NEEDS OR PAIN. LEFT KNEE ZIPTIES INTACT WNL. LEFT ELBOW DRESSING INTACT. NO SIGNS OF ACUTE DISTRESS NOTED. TOILETING OFFERED AND DENIED. CALL LIGHT WITHIN REACH. BED ALARM ON. CPOC
[2020-04-06 21:10] VITALS: BP 128/52
--- NOTE | 2020-04-06 22:35 | NUR ---
PT LYING IN BED EYES CLOSED RESTING. RR EVEN AND UNLABORED. CALL LIGHT WITHIN REACH. FALL PRECAUTIONS IN PLACE. WILL CONTINUE TO MONITOR
--- NOTE | 2020-04-07 00:40 | NUR ---
ASSISTED PT TO RESTROOM AND BACK TO BED WITH MIN ASSIST. DENIES ANY OTHER NEEDS OR PAIN. CALL LIGHT WITHIN REACH. FALL PRECAUTIONS IN PLACE. CPOC
--- NOTE | 2020-04-07 03:22 | NUR ---
PT LYING IN BED EYES CLOSED RESTING. HOB ELEVATED. CALL LIGHT WITHIN REACH. FALL PRECAUTIONS IN PLACE. CPOC
--- NOTE | 2020-04-07 04:40 | NUR ---
ASSISTED PT TO RESTROOM WITH MIN ASSIST. INSTRUCTED PT TO PULL NURSE CALL WHEN READY. PT VERBALIZED UNDERSTANDING.
[2020-04-07 07:03] LABS: BASOPHILS 0.3 % (0-2); EOSINOPHILS 3.7 % (0-7); HEMATOCRIT 27.9 % (36.0-48.0); HEMOGLOBIN 8.7 g/dL (12-16); IMMATURE GRANULOCYTES 0.6 % (0-5); LYMPHOCYTES 23.8 % (15-50); MCH 26.7 pg (26.0-34.0); MCHC 31.2 g/dL (31.0-37.0); MCV 85.6 fL (80.0-100.0); MEAN PLATELET VOLUME 8.2 fL (7.4-10.4); MONOCYTES 9.2 % (2-11); NEUTROPHILS 62.4 % (40-80); PLATELET COUNT 417 10x3/uL (130-400); RBC 3.26 10x6/uL (4.00-5.40); RDW 14.2 % (11.5-14.5); WBC 9.9 10x3/uL (4.8-10.8)
[2020-04-07 07:16] LABS: CALC OSMOLALITY 265 mosm/kg (275-300); CALCIUM 9.1 mg/dL (8.5-10.1); CARBON DIOXIDE 30.8 mmol/L (21.0-32.0); CHLORIDE - SERUM 96 mmol/L (98-107); CREATININE - SERUM 0.5 mg/dL (0.6-1.3); GLUCOSE 105 mg/dL (74-106); POTASSIUM - SERUM 4.7 mmol/L (3.5-5.1); SODIUM 131 mmol/L (136-145); UREA NITROGEN 21 mg/dL (7-18); eGFR NON AFRICAN AMERICAN > 90 mL/min (90-120)
[2020-04-07 08:00] VITALS: BP 113/37
--- NOTE | 2020-04-07 15:34 | NUR ---
SITTING UP IN BED READING A BOOK. HAS BEEN WORKING WITH THERAPY. LEFT KNEE STILL CLOSED WITH ZIP TIE LOOKING STRIP. SHE C/O MORE OF PAIN TO RAISED AREA BELOW LEFT KNEE CAP THAN HER KNEE INCISION.
--- NOTE | 2020-04-07 16:22 | NUR ---
Nutrition Follow-up: Diet: Regular PO intake: none recorded recently, was 75-100% Last BM: 04/07/20 x 2. WT: 143# (04/03/20) Meds noted: HCTZ. Labs noted 131(L) Recommend continue current diet. RD following.
--- NOTE | 2020-04-07 19:30 | NUR ---
AWAKE AND ALERT. RESTING IN BED WITH RESPIRAITONS UNLABORED. NO DISTRESS NOTED. DRESSING INTACT TO LEFT ARM AND LEFT KNEE. CALL LIGHT IN REACH.
[2020-04-07 21:26] VITALS: BP 119/53
--- NOTE | 2020-04-08 01:07 | NUR ---
SLEEPING WITH RESPIRATIONS UNLABORED. NO DISTRESS NOTED.
--- NOTE | 2020-04-08 04:39 | NUR ---
URINE SPECIMEN COLLECTED AND SENT TO LAB.
--- NOTE | 2020-04-08 05:11 | NUR ---
NO ACUTE CHANGES IN CONDITION THIS SHIFT. RESTING IN BED WITH NO DISTRESS NOTED.
[2020-04-08 06:01] LABS: BILIRUBIN NEGATIVE (NEGATIVE); GLUCOSE NEGATIVE (NEGATIVE); KETONE NEGATIVE (NEGATIVE); NITRITE NEGATIVE (NEGATIVE); SPECIFIC GRAVITY 1.005 (1.005-1.020); UROBILINOGEN NORMAL (NORMAL)
[2020-04-08 08:00] VITALS: BP 155/52
--- NOTE | 2020-04-08 11:22 | NUR ---
ASSIST PT UP TO WC, PROPELLED TO RESTROOM TRANSFERRED WITH MIN ASSIST. ALERT AND ORIENTED X3.
--- NOTE | 2020-04-08 12:16 | NUR ---
CLINICAL UPDATES FAXED TO JENNIFER SANDERS AT , AUTH. # [id number], WITH CONFORMAION RECIEVED. WILL CONTINUE TO FOLLOW WITH PATIENT.
--- NOTE | 2020-04-08 13:53 | NUR ---
RESTING QUIETLY IN BED.DENIES NEEDS .DRESSING INTACT TO LEFT KNEE CLEAN AND DRY.KNOT WITH SLIGHT REDDNESS OBSERVED BELOW DRESSING,STATES" SAYS IT'S CEMENT THAT LEAKED OUT."CL IN EASY REACH,BED IN LOW POSITION.
--- NOTE | 2020-04-08 19:28 | NUR ---
AWAKE AND ALERT. RESTING IN BED WITH RESPIRATIONS UNLABORED. DRESSINGS TO LEFT ELBOW AND LEFT KNEE DRY AND INTACT. STATES SHE HAD A GOOD DAY. NO ACUTE DISTRESS NOTED. CALL LIGHT IN REACH.
[2020-04-08 21:18] VITALS: BP 133/34
--- NOTE | 2020-04-09 | NUR ---
ASSISTED TO BATHROOM AND BACK TO BED. NO DISTRESS NOTED.
--- NOTE | 2020-04-09 05:00 | NUR ---
NO ACUTE CHANGES IN CONDITION THIS SHIFT. UP FREQUENTLY TO USE THE BATHROOM. NOW RESTING IN BED WITH NO DISTRESS NOTED. DRESSINGS TO LEFT ELBOW AND LEFT KNEE DRY AND INTACT.
[2020-04-09 06:27] LABS: BASOPHILS 0.2 % (0-2); EOSINOPHILS 5.1 % (0-7); HEMATOCRIT 30.6 % (36.0-48.0); HEMOGLOBIN 9.4 g/dL (12-16); IMMATURE GRANULOCYTES 0.4 % (0-5); LYMPHOCYTES 20.7 % (15-50); MCH 26.2 pg (26.0-34.0); MCHC 30.7 g/dL (31.0-37.0); MCV 85.2 fL (80.0-100.0); MEAN PLATELET VOLUME 8.4 fL (7.4-10.4); MONOCYTES 9.8 % (2-11); NEUTROPHILS 63.8 % (40-80); PLATELET COUNT 432 10x3/uL (130-400); RBC 3.59 10x6/uL (4.00-5.40); RDW 13.9 % (11.5-14.5); WBC 8.9 10x3/uL (4.8-10.8)
[2020-04-09 06:51] LABS: CALC OSMOLALITY 271 mosm/kg (275-300); CALCIUM 9.3 mg/dL (8.5-10.1); CARBON DIOXIDE 31.2 mmol/L (21.0-32.0); CHLORIDE - SERUM 98 mmol/L (98-107); CREATININE - SERUM 0.5 mg/dL (0.6-1.3); GLUCOSE 99 mg/dL (74-106); POTASSIUM - SERUM 4.5 mmol/L (3.5-5.1); SODIUM 135 mmol/L (136-145); UREA NITROGEN 19 mg/dL (7-18); eGFR NON AFRICAN AMERICAN > 90 mL/min (90-120)
[2020-04-09 08:00] VITALS: BP 153/81
--- NOTE | 2020-04-09 10:16 | NUR ---
SITTING IN WC IN ROOM VISITING WITH DTR. DENIES INCREASED PAIN TO LLE. BORDER DRESSING IN PLACE COVERING LEFT KNEE ZIP TIE CLOSURE SYSTEM. STILL HAS LEMON SIZED SWOLLEN AREA TO LEFT BONILLA AREA APPX 3" BELOW KNEE, ANTERIOR. CALL LIGHT IN REACH
--- NOTE | 2020-04-09 19:05 | NUR ---
BEDSIDE REPORT COMPLETE. PT LYING IN BED. HOB ELEVATED. ALERT AND ORIENTED X4. C/O NAUSEA. JC RN ADMININSTERED TUMS AND ZOFRAN. NO OTHER CONCERNS VOICED. DENIES ANY PAIN. FAMILY AT BEDSIDE. RR EVEN AND UNLABORED. LEFT KNEE DRESSING INTACT. CALL LIGHT WITHIN REACH. FALL PRECAUTIONS IN PLACE. CPOC
[2020-04-09 21:10] VITALS: BP 107/65
--- NOTE | 2020-04-09 23:12 | NUR ---
PT LYING IN BED EYES CLOSED RESTING. HOB ELEVATED. RR EVEN AND UNLABORED. CALL LIGHT WITHIN REACH. FALL PRECAUTIONS IN PLACE. WILL CONTINUE TO MONITOR
--- NOTE | 2020-04-10 02:40 | NUR ---
ASSISTED PT TO RESTROOM AND BACK TO BED WITH SBA. PT DENIES ANY OTHER NEEDS OR PAIN. CALL LIGHT WITHIN REACH. BED ALARM ON. WILL CONTINUE TO MONITOR
--- NOTE | 2020-04-10 05:57 | NUR ---
ASSISTED PT TO RESTROOM AND BACK TO BED WITH SBA. DENIES ANY OTHER NEEDS. CALL LIGHT WITHIN REACH. FALL PRECAUTIONS IN PLACE. WILL CONTINUE TO MONITOR
[2020-04-10 08:00] VITALS: BP 117/58
[2020-04-10] MEDS ORDERED: oxyCODONE IR PO (08:18)
[2020-04-10] MEDS ORDERED: HYDROCODON-ACE1 EA10 PO (08:18)
--- NOTE | 2020-04-10 15:23 | NUR ---
LAYING ON BACK IN BED. LEGS ON PILLOW. DSG COVER TO LLE KNEE INCISION. TAKES PAIN MEDS NEEDED. CALL LIGHT IN REACH. BED IN LOWEST POSITION. SIDE RAILS UP X2.
--- NOTE | 2020-04-10 16:56 | NUR ---
DR HUMPHREY ROUNDED ON PT AND TOOK OFF ZIP TIE CLOSURE TO LEFT KNEE AND DRESSED AREA HIMSELF. SHE IS SCHEDULED TO DC TOMORROW
[2020-04-10 19:00] VITALS: BP 128/53
--- NOTE | 2020-04-10 19:05 | NUR ---
BEDSIDE REPORT COMPLETE. PT SITTING UP ON SIDE OF BED VISITING WITH DAUGHTER. ALERT AND ORIENTED X4. DENIES ANY NEEDS OR PAIN. NO SIGNS OF ACUTE DISTRESS NOTED. LEFT KNEE AND ELBOW DRESSING INTACT. CALL LIGHT WITHIN REACH. BED ALARM ON. CPOC
--- NOTE | 2020-04-11 00:10 | NUR ---
PT LYING IN BED ON RIGHT SIDE EYES CLOSED RESTING QUIETLY. RR EVEN AND UNLABORED. CALL LIGHT WITHIN REACH. FALL PRECAUTIONS IN PLACE. WILL CONTINUE TO MONITOR
--- NOTE | 2020-04-11 02:05 | NUR ---
ASSISTED PT TO RESTROOM AND BACK TO BED WITH SBA. DENIES ANY OTHER NEEDS. C/O DISCOMFORT IN LEFT ELBOW. ICE PACK APPLIED TO LT ELBOW. CALL LIGHT WITHIN REACH. FALL PRECAUTIONS IN PLACE. WILL CONTINUE TO MONITOR
--- NOTE | 2020-04-11 04:50 | NUR ---
ASSISTED PT TO RESTROOM AND BACK TO BED WITH SBA. DENIES ANY OTHER NEEDS. C/O LEFT ELBOW PAIN 5/10 STINGING RADIATING. WILL ADMININSTER PAIN MEDICATION WITH EARLY AM MEDS. CALL LIGHT WITHIN REACH. FALL PRECAUTIONS IN PLACE. CPOC
[2020-04-11 05:21] LABS: BASOPHILS 0.4 % (0-2); EOSINOPHILS 4.6 % (0-7); HEMOGLOBIN 9.1 g/dL (12-16); IMMATURE GRANULOCYTES 0.4 % (0-5); LYMPHOCYTES 25.8 % (15-50); MCH 26.3 pg (26.0-34.0); MCHC 30.3 g/dL (31.0-37.0); MCV 86.7 fL (80.0-100.0); MEAN PLATELET VOLUME 8.5 fL (7.4-10.4); MONOCYTES 10.1 % (2-11); NEUTROPHILS 58.7 % (40-80); PLATELET COUNT 404 10x3/uL (130-400); RBC 3.46 10x6/uL (4.00-5.40); RDW 14.2 % (11.5-14.5); WBC 8.5 10x3/uL (4.8-10.8)
[2020-04-11 05:56] LABS: CALC OSMOLALITY 266 mosm/kg (275-300); CALCIUM 9.1 mg/dL (8.5-10.1); CARBON DIOXIDE 28.4 mmol/L (21.0-32.0); CHLORIDE - SERUM 98 mmol/L (98-107); CREATININE - SERUM 0.5 mg/dL (0.6-1.3); GLUCOSE 98 mg/dL (74-106); POTASSIUM - SERUM 4.5 mmol/L (3.5-5.1); SODIUM 132 mmol/L (136-145); UREA NITROGEN 18 mg/dL (7-18); eGFR NON AFRICAN AMERICAN > 90 mL/min (90-120)
[2020-04-11 07:51] VITALS: BP 141/63
--- NOTE | 2020-04-11 10:35 | NUR ---
PATIENT DISCHARGING HOME WITH FAMILY TODAY.A WRITTEN SCRIPT FOR OUTPATIENT THERAPY GIVEN TO PATIENT PER HER REQUEST. [facility] WILL DELIVER A MABEL WALKER TO PATIENT. DR. DE PAZ 04/17/20 @ 11:40, DR. HUMPHREY 04/21/20 @ 2:40 CHRISTINA SIGNED, IMM SERVED AND EXPLAINED. ONE GIVEN TO PATIENT AND ONE FILED IN CHART. NO COMPARE DATA REVIEWED PER PATIENT REQUEST. DISCHARGE INSTRUCTIONS FAXED TO PCP, REVIEWED WITH PATIENT PER PRIMARY NURSE AND FAXED TO JENNIFER SANDERS AT [facility], , AUTH. # [id number].
--- NOTE | 2020-04-11 13:35 | NUR ---
DC HOME WITH DTR. MEDS CALLED INTO [facility]. REVIEWED MEDS, DC PLAN, FOLLOW UP APPTS. DONE TEACHING WITH PT ON S/S INFECTION TO KNEE AND ELBOW AND WHEN TO CALL PHYSICIAN. HAS MABEL WALKER THAT WAS DELIVERED TO ROOM. LEFT FLOOR IN
== END 2020-04-11 13:40 | disposition home or self-care (01) | DRG 560 ==
LOC: D.REHAB 15:13
PROVIDERS: Orthopaedic Surgery; ADMIT Emergency Medicine; ATTEND Emergency Medicine
DX: Z47.1 Aftercare following joint replacement surgery (principal); D62 Acute posthemorrhagic anemia; Z96.652 Presence of left artificial knee joint; M17.12 Unilateral primary osteoarthritis, left knee; S52.122D Displaced fracture of head of left radius, subsequent encounter for closed fracture with routine healing; D72.829 Elevated white blood cell count, unspecified; F32.9 Major depressive disorder, single episode, unspecified; E78.5 Hyperlipidemia, unspecified; G25.81 Restless legs syndrome; R26.9 Unspecified abnormalities of gait and mobility; R53.83 Other fatigue; Z79.01 Long term (current) use of anticoagulants; I10 Essential (primary) hypertension; R53.1 Weakness

== ENCOUNTER 2020-04-23 10:52 | Day surgery (SDC) | payer MEDICARE, MEDICAID ==
[~2020-04-23] VITALS: Ht 152.4 cm; Wt 65.3 kg
[~2020-04-23 10:52] MED LIST changes: +OXYCODONE HCL5 M1 PO; +oxyCODONE IR PO
[2020-04-23 11:15] LABS: HEMATOCRIT 31.7 % (36.0-48.0); MCHC 31.5 g/dL (31.0-37.0); MCV 82.6 fL (80.0-100.0); MEAN PLATELET VOLUME 8.8 fL (7.4-10.4); RBC 3.84 10x6/uL (4.00-5.40); RDW 13.8 % (11.5-14.5); WBC 6.3 10x3/uL (4.8-10.8)
[2020-04-23 11:20] LABS: CALC OSMOLALITY 260 mosm/kg (275-300); CARBON DIOXIDE 30.7 mmol/L (21.0-32.0); CHLORIDE - SERUM 96 mmol/L (98-107); CREATININE - SERUM 0.6 mg/dL (0.6-1.3); GLUCOSE 104 mg/dL (74-106); SODIUM 130 mmol/L (136-145); UREA NITROGEN 13 mg/dL (7-18); eGFR NON AFRICAN AMERICAN > 90 mL/min (90-120)
[2020-04-23 12:27] VITALS: BP 153/52; Ht 152.4 cm; Wt 65.3 kg
[2020-04-23] MEDS ORDERED: HYDROCODON-ACE1 EA10 PO (14:44)
[2020-04-23] MEDS ORDERED: CIPRO500 MG PO (14:44)
--- NOTE | 2020-04-23 15:09 | NUR ---
1455 OPA DISCONTINUED PATIENT AROUSABLE, MAINTAINING PATENT AIRWAY
--- NOTE | 2020-04-25 07:01 | OP ---
PATIENT NAME: HARITHA LYNNE MEDICAL RECORD: [id number] :42 LOCATION:D.OPS ADMISSION DATE: SURGEON: ARCHIE HUMPHREY DO DATE OF OPERATION: 04/23/2020 PROCEDURE PERFORMED: Excision of foreign body of the left lower extremity. PREOPERATIVE DIAGNOSIS: Foreign body, left lower extremity. POSTOPERATIVE DIAGNOSIS: Foreign body, left lower extremity. INDICATIONS: Ms. Lynne is a 79-year-old female who underwent a left total knee arthroplasty approximately a month ago. She had some cement leaking out into the soft tissue at the distal tip of the stem that we put into the tibia and soft tissue. I took her through full range of motion prior to being discharged and they did not violate the cortex, somehow the cement leaked out. She obviously had some kind of a hole in the cortex, but it was not anything obvious. No fracture, so revision was not merited. I told her when she got home and settled in decent condition in order to have that done, I would remove the cement and if needed, take that stem out and put a longer one down if it came to that. I told her I really do not want to do that due to the fact that it did not appear to violate the cortex. She was aware of that and aware of the risks including infection, bleeding, nonhealing wound due to the fact of the mid tibia, continued pain, and problems, fracture of the tibia and blood clots, and even and she signed the consent. SURGEON: Archie Humphrey DO DESCRIPTION OF PROCEDURE: The patient was taken to the operative suite, laid in the supine position, given general anesthetic, an LMA was placed. She was given a block in the preoperative area as well. She was given a gram of vancomycin and LMA was placed. The left lower extremity was then prepped and draped in sterile fashion. Timeout was performed, every one was agreeance with correct side, site, patient, and procedure. I then exsanguinated the left lower extremity and inflated the tourniquet to 350 mmHg, it was up for 32 minutes. I then did a fluoroscopy first where the tibia to ensure that again the tibial stem was not out of the bone, it did not appear to be. There are 4 cortices seen on x-ray and the stem was contained in all 4 of them on AP and lateral. I then proceeded by making an incision over the cement and with osteotome, took out big chunks and then used a bur to bur down where it was closest to the bone, making it smooth with ultrasound gel. A sterile ultrasound gel was then used, which we also used overall, was using a bur to catch the fragments of the cement. Has had burred it down. We then irrigated very thoroughly with 400 mL normal saline. The area of the tourniquet was let down. Any bleeding was coagulated with a pickup and Bovie. I then closed the skin with 2-0 Vicryl in inverted interrupted fashion and then Raheel Aguilera, customer support assistant student, closed the skin under my direction with a 2-0 Prolene in a horizontal mattress fashion. The wound was then dressed with Adaptic, 4 x 4s, Kerlix, and an Phuc wrap. She was then awakened and taken to recovery in stable condition. Tourniquet was let down at 32 minutes. BLOOD LOSS: Minimal. COMPLICATIONS: None. OPERATIVE REPORT [id number] HARITHA LYNNE TRANSINT:[id number] Voice Confirmation ID: [id number] DOCUMENT ID: [id number] ARCHIE HUMPHREY DO at 0701 CC: [id number] DICTATION DATE: 04/23/20 1449 SUPERVISORY INVESTIGATIVE SPECIALIST: 04/24/20 0048 [facility] 04/23/20 [id number] [place] [id number]
== END 2020-04-23 17:15 | disposition home or self-care (01) ==
LOC: D.OPS 10:52 → D.PAN 13:00 → D.OPS 13:00
PROVIDERS: Anesthesiology; ATTEND Orthopaedic Surgery
DX: Z18.9 Retained foreign body fragments, unspecified material (principal); R22.42 Localized swelling, mass and lump, left lower limb; M25.562 Pain in left knee; M17.0 Bilateral primary osteoarthritis of knee